=== PATIENT | male | born 1980 | race African-American/Black ===

== ENCOUNTER 2017-05-13 22:15 | Emergency (ER) | payer OTHER ==
[2017-05-13] MEDS ORDERED: KETOROLAC TROMETHAMINE INJ/PF 30 MG/1 ML SDV IV ONE (22:23)
[2017-05-13] MEDS ORDERED: HYDROMORPHONE HCL INJ/PF 2 MG/ML AMPULE IV ONE (22:23)
--- NOTE | 2017-05-13 22:29 | ER Document Report ---
ED Medical Screen (RME) - General Chief Complaint: Shoulder Injury Stated Complaint: SHOULDER INJURY Time Seen by Provider: 05/13/17 22:28 Notes: 37-year-old male, past medical history PTSD, presents with right shoulder injury by EMS after a fall. He has never had a shoulder dislocation in the past. He was given 2 mg IV Dilaudid by EMS prior to arrival. PE: Visible right shoulder deformity. Strong distal pulses. I have greeted and performed a rapid initial assessment of this patient. A comprehensive ED assessment and evaluation of the patient, analysis of test results and completion of the medical decision making process will be conducted by additional ED providers. TRAVEL OUTSIDE OF THE [place] IN LAST 30 DAYS: No - Related Data Allergies/Adverse Reactions: tramadol [Tramadol] Allergy (Verified 03/24/17 05:49) Past Medical History - Past Medical History Cardiac Medical History: Reports: Hx Hypertension Psychiatric Medical History: Reports: Hx Depression - Immunizations Hx Diphtheria, Pertussis, Tetanus Vaccination: Yes
[2017-05-13] MEDS ORDERED: PROPOFOL INJ 200 MG/20 ML VIAL IV ONE (22:32)
[2017-05-13] MEDS ORDERED: FENTANYL CITRATE INJ/PF 100 MCG/2 ML AMPUL IV ONE (22:51)
[2017-05-13] MEDS ORDERED: PROPOFOL 0 ML IV ONE (23:01)
--- NOTE | 2017-05-13 23:06 | RADIOLOGY REPORT (SQ) ---
EXAM DESCRIPTION: SHOULDER RIGHT 2 OR MORE VIEWS COMPLETED DATE/TIME: 05/13/2017 10:51 pm REASON FOR STUDY: right shoulder pain COMPARISON: None. NUMBER OF VIEWS: Two views TECHNIQUE: AP and Y-view images acquired of the right shoulder. LIMITATIONS: None. FINDINGS: MINERALIZATION: Normal. BONES: No acute fracture or dislocation. No worrisome bone lesions. JOINTS: There is an anterior dislocation of the right shoulder. VISUALIZED LUNGS AND RIBS: No pneumothorax. No rib fracture. SOFT TISSUES: No radiopaque foreign body. OTHER: No other significant finding. IMPRESSION: Anterior dislocation without evidence for fracture. TECHNICAL DOCUMENTATION: JOB ID: [id number] [employer]- All Rights Reserved
--- NOTE | 2017-05-13 23:14 | ER Document Report ---
ED General - General Chief Complaint: Shoulder Injury Stated Complaint: SHOULDER INJURY Time Seen by Provider: 05/13/17 22:28 Notes: Patient is a 37-year-old male who presents with severe pain to the right shoulder after apparently falling down several steps. Patient states he tripped and fell landing on his right shoulder. He denies hitting his head or neck. No loss of consciousness. No weakness or numbness. He denies any additional focal injuries but states he does have diffuse body pain. He has no prior history of a shoulder dislocation in the past. He is noting a severe, constant, stabbing pain to the right shoulder. States any attempt at moving the shoulder repositioning worsens the pain. He has received intravenous hydromorphone by EMS and states that this is moderately improved his pain. TRAVEL OUTSIDE OF THE [place] IN LAST 30 DAYS: No - Related Data Allergies/Adverse Reactions: tramadol [Tramadol] Allergy (Verified 03/24/17 05:49) Past Medical History - General Information source: Patient - Social History Smoking Status: Never Smoker Chew tobacco use (# tins/day): No Frequency of alcohol use: Occasional Drug Abuse: None Lives with: Spouse/Significant other Family History: Reviewed & Not Pertinent - Past Medical History Cardiac Medical History: Reports: Hx Hypertension Psychiatric Medical History: Reports: Hx Depression - Immunizations Hx Diphtheria, Pertussis, Tetanus Vaccination: Yes Review of Systems - Review of Systems Notes: Constitutional: Negative for fever. Eyes: Negative for visual changes. ENT: Negative for facial injury Cardiovascular: Negative for chest injury. Respiratory: Negative for shortness of breath. Gastrointestinal: Negative for abdominal injury. Genitourinary: Negative for genital injury Musculoskeletal: Positive for right shoulder pain Skin: Negative for laceration/abrasions. Neurological: Negative for head injury. Physical Exam - Vital signs Vitals: Temp 98.5 F 05/13/17 22:23 Interpretation: Normal Notes: PHYSICAL EXAMINATION: GENERAL: Appears to be in significant pain, diaphoretic HEAD: Atraumatic, normocephalic. EYES: Pupils equal round and reactive to light, extraocular movements intact, sclera anicteric, conjunctiva are normal. ENT: nares patent, no oral pharyngeal trauma. No hemotympanum, no Billingsley's sign , no raccoon eyes. NECK: No midline cervical spine tenderness. Patient able to move their head to 45 bilaterally without any discomfort. LUNGS: Breath sounds clear to auscultation bilaterally and equal. No wheezes rales or rhonchi. HEART: Regular rate and rhythm without murmurs. CHEST WALL: No ecchymosis over the chest wall. ABDOMEN: Soft, nontender, normoactive bowel sounds. No guarding, no rebound. No abdominal bruising EXTREMITIES: Apparent anterior shoulder dislocation on the right. No other similar findings. S. BACK: No midline spinal tenderness, step-offs, or deformities. NEUROLOGICAL: Face symmetric. Tongue protrudes midline. Extraocular motions intact. Pupils are 2 mm and equally reactive. Normal speech, normal gait. 5 out of 5 strength in both the distal and proximal upper and lower extremities bilaterally. Sensation is grossly intact throughout. Finger to nose testing normal. Pronator drift normal. PSYCH: Anxious, somewhat agitated SKIN: Warm, Dry, normal turgor, no rashes or lesions noted. Course - Re-evaluation Re-evalutation: 05/13/17 23:11 Patient presents with an acute right shoulder anterior dislocation after falling down while coming down the steps. He denies any additional injuries. Patient was in exquisite pain of time presentation. X-ray did confirm anterior dislocation. Patient was procedurally sedated with propofol, and reduction was successful. Patient was subsequently placed in a sling. RMU motor and sensory distribution intact pre-and post reduction. Postreduction films obtained and do show appropriate relocation. Patient does have multiple additional areas of contusions over his body but no focal abdominal or chest wall tenderness. He did not his head or neck today. He was able to ambulate around the emergency department after waking up from sedation without any difficulty. At this time will discharge with return precautions and follow-up recommendations. Verbal discharge instructions given a the bedside and opportunity for questions given. Medication warnings reviewed. Patient is in agreement with this plan and has verbalized understanding of return precautions and the need for primary care follow-up in the next 24-72 hours. - Vital Signs Vital signs: Temp Pulse Resp BP Pulse Ox 98.5 F 18 160/104 H 99 05/13/17 22:23 05/14/17 01:01 05/14/17 01:01 05/14/17 01:01 - Diagnostic Test Radiology reviewed: Image reviewed, Reports reviewed Radiology results interpreted by me: 10/23/17 03:52 Initial shoulder x-ray: Anterior right shoulder dislocation Postreduction x-ray: Shoulder relocation is completed Procedures - Conscious Sedation Conscious sedation Time started: 23:00 Time completed: 23:10 Consent obtained: Yes Indication: Procedural sedation for right shoulder relocation Prior complications: Procedural sedation Pt with a mild systemic disease.: P2. - ASA Classification. Airway Evaluation: Large tongue, Obese Mallampati Classification: Class 2 Used during procedure: Suction available, IV access obtained, Pulse ox on pt., awake overnight monitor on pt. Medications administered: Diprivan Reversal agents: None I personally performed/intraservice time: Sedation, Procedure, 30 min or less Complications: No - Joint Reduction/Fracture Care Right Shoulder Time completed: 23:10 Consent obtained: Yes Conscious sedation: Yes Pre-procedure NV exam: Yes Fracture: Other Manipulation comment: Humeral head pressure, inferior traction and external rotation Post-procedure NV exam: Yes Post-reduction x-ray: Joint reduced Reduction attempts: 1 Complications: No Discharge - Discharge Clinical Impression: Anterior dislocation of right shoulder Qualifiers: Encounter type: initial encounter Qualified Code(s): S43.014A - Anterior dislocation of right humerus, initial encounter Fall Qualifiers: Encounter type: initial encounter Qualified Code(s): W19.XXXA - Unspecified fall, initial encounter Condition: Good Disposition: HOME, SELF-CARE Additional Instructions: Your shoulder was dislocated today. This was reduced. Please wear the sling as needed for comfort. Follow-up with orthopedic surgery if you have recurrent shoulder dislocations. You should continue to take anti-inflammatories such as ibuprofen 600 mg every 6 hours for pain. Continue to apply ice to the area is much your able. Please return immediately if you develop weakness, numbness , spreading redness from the area, or any other symptoms that are concerning to you. Forms: Return to Work Referrals: KEVIN GOMEZ MD [Primary Care Provider] - Follow up as needed
--- NOTE | 2017-05-13 23:37 | RADIOLOGY REPORT (SQ) ---
EXAM DESCRIPTION: SHOULDER RIGHT 1 VIEW COMPLETED DATE/TIME: 05/13/2017 11:21 pm REASON FOR STUDY: post-reduction COMPARISON: 05/13/2017 TECHNIQUE: AP view of the right shoulder LIMITATIONS: None. FINDINGS: There has been interval reduction of the previously described anterior dislocation IMPRESSION: Interval reduction as noted above. TECHNICAL DOCUMENTATION: JOB ID: [id number] [employer]- All Rights Reserved
[2017-05-14 01:15] VITALS: BP 160/104
== END 2017-05-14 01:36 | disposition home or self-care (01) ==
LOC: ER 22:15
PROC: 0RSJXZZ Reposition Right Shoulder Joint, External Approach (ICD-10-PCS; principal; 2017-05-13)
DX: S43.014A Anterior dislocation of right humerus, initial encounter (principal); W19.XXXA Unspecified fall, initial encounter
CPT/HCPCS: 99284; 99152; 96374; 73020; 73030; 23650; L3650; J1885; J2704

== ENCOUNTER → 2017-05-24 | Day surgery (SDC) | payer OTHER ==
--- NOTE | 2017-05-24 14:01 | RADIOLOGY REPORT (SQ) ---
EXAM DESCRIPTION: ARTHRO SHOULDER INJECTION; FLUORO/NEEDLE PLACEMENT COMPLETED DATE/TIME: 05/24/2017 1:26 pm REASON FOR STUDY: ANTERIOR DISLOCATION OF RIGHT HUMERUS (S43.014A) S43.014A ANTERIOR DISLOCATION OF RIGHT HUMERUS, INITIAL ENCO COMPARISON: None. FLUOROSCOPY TIME: 18 seconds. 2 images saved to PACS. LIMITATIONS: None. PROCEDURE: Procedure, risks, benefits and alternatives explained to patient who then gave written c onsent. The right shoulder was marked and a time-out was called for correct marking verification. An terior entry site marked using fluoroscopic guidance. Shoulder prepped and draped using equine pharmacology technician nique. Local anesthesia achieved using 1% lidocaine injection. Hypodermic needle introduced into the joint space under direct fluoroscopic visualization. Approximately 10 mL of old blood was remove d. Non-ionic contrast instilled to confirm intra-articular position. Dilute gadolinium solution the n injected. Needle removed and entry site covered with sterile bandage. No immediate complications noted. TECHNIQUE: Digital images acquired during fluoroscopy and stored on PACS. Patient immediately taken to the MR suite for additional imaging. INJECTION LOCATION: Anterior right shoulder. CONTRAST TYPE AND AMOUNT:2 mL Isovue-300 and 10 mL ProHance saline mixture. IMPRESSION: SUCCESSFUL NEEDLE PLACEMENT AND INJECTION FOR RIGHT SHOULDER MR ARTHROGRAM USING ANTERIO R APPROACH. COMMENT: Approximately 10 mm of old blood was aspirated from the shoulder joint prior to contrast in jection. Quality ID [id number]: Final reports for procedures using fluoroscopy that document radiation exposure amalia jem, or exposure time and number of fluorographic images (if radiation exposure indices are not avail able) TECHNICAL DOCUMENTATION: JOB ID: [id number] [employer]- All Rights Reserved
--- NOTE | 2017-05-24 14:01 | RADIOLOGY REPORT (SQ) ---
EXAM DESCRIPTION: ARTHRO SHOULDER INJECTION; FLUORO/NEEDLE PLACEMENT COMPLETED DATE/TIME: 05/24/2017 1:26 pm REASON FOR STUDY: ANTERIOR DISLOCATION OF RIGHT HUMERUS (S43.014A) S43.014A ANTERIOR DISLOCATION OF RIGHT HUMERUS, INITIAL ENCO COMPARISON: None. FLUOROSCOPY TIME: 18 seconds. 2 images saved to PACS. LIMITATIONS: None. PROCEDURE: Procedure, risks, benefits and alternatives explained to patient who then gave written c onsent. The right shoulder was marked and a time-out was called for correct marking verification. An terior entry site marked using fluoroscopic guidance. Shoulder prepped and draped using brewing technician nique. Local anesthesia achieved using 1% lidocaine injection. Hypodermic needle introduced into the joint space under direct fluoroscopic visualization. Approximately 10 mL of old blood was remove d. Non-ionic contrast instilled to confirm intra-articular position. Dilute gadolinium solution the n injected. Needle removed and entry site covered with sterile bandage. No immediate complications noted. TECHNIQUE: Digital images acquired during fluoroscopy and stored on PACS. Patient immediately taken to the MR suite for additional imaging. INJECTION LOCATION: Anterior right shoulder. CONTRAST TYPE AND AMOUNT:2 mL Isovue-300 and 10 mL ProHance saline mixture. IMPRESSION: SUCCESSFUL NEEDLE PLACEMENT AND INJECTION FOR RIGHT SHOULDER MR ARTHROGRAM USING ANTERIO R APPROACH. COMMENT: Approximately 10 mm of old blood was aspirated from the shoulder joint prior to contrast in jection. Quality ID 145: Final reports for procedures using fluoroscopy that document radiation exposure amalia jem, or exposure time and number of fluorographic images (if radiation exposure indices are not avail able) TECHNICAL DOCUMENTATION: JOB ID: [id number] [employer]- All Rights Reserved
--- NOTE | 2017-05-25 09:39 | RADIOLOGY REPORT (SQ) ---
EXAM DESCRIPTION: MRI RT UPPER JOINT WITH COMPLETED DATE/TIME: 05/24/2017 2:05 pm REASON FOR STUDY: ANTERIOR DISLOCATION OF RIGHT HUMERUS (S43.014A) S43.014A ANTERIOR DISLOCATION OF RIGHT HUMERUS, INITIAL ENCO COMPARISON: Right shoulder films 05/13/2017 TECHNIQUE: Right shoulder post arthrogram images acquired and stored on PACS. Oblique coronal, obliq ue sagittal, and axial imaging to include fat sensitive sequences as T1, water sensitive sequences as FST2/STIR, and contrast sensitive sequences as FST1. LIMITATIONS: None. FINDINGS: JOINT DISTENTION: Adequate distention for interpretation. No leakage of contrast from the joint space into the subacromial/subdeltoid bursa. BONE MARROW AND CORTEX: There is marrow edema in the posterior right humeral head along the greater t uberosity from a Hill-Sachs deformity. There is also edema in the inferior bony glenoid from contusi on AC JOINT: Type II acromion. Moderate acromioclavicular joint bony spurring is present best shown on s agittal image 11 and coronal image 12. There is mild narrowing of the subacromial recess. GLENOHUMERAL JOINT: Currently, there is normal glenohumeral alignment. ROTATOR CUFF: High signal along the undersurface of the distal infraspinatus tendon from tendinopathy . Mild high signal along the superior margin of the subscapularis tendon from tendinopathy. Suprasp inatus intact. LABRUM AND BICEPS LABRAL COMPLEX: Long head intra-articular biceps tendon and superior labrum are nor mal. There is a out some lesion along the inferior aspect of the glenoid anteriorly, best shown on a xial images 10-14. There is also an osteochondral fracture of the posterior inferior bony labrum, wi th disruption of the inferior posterior labrum on axial image 11. ADJACENT SOFT TISSUES: No masses or nodes. OTHER: No other significant finding. IMPRESSION: Hill-Sachs deformity right humeral head with mild cortical depression and subcortical ed marisela Soft tissue and bony injury along the anterior inferior and posterior inferior glenoid labrum Tendinopathy along the posterior aspect of the infraspinatus tendon, and superior margin of the subsc apularis tendon TECHNICAL DOCUMENTATION: JOB ID: [id number] [employer]- All Rights Reserved
== END ==
LOC: RAD 12:44
PROVIDERS: ATTEND Family Medicine
PROC: BP09ZZZ Plain Radiography of Left Shoulder (ICD-10-PCS; principal; 2017-05-24)
DX: S43.014A Anterior dislocation of right humerus, initial encounter (principal); X58.XXXA Exposure to other specified factors, initial encounter
CPT/HCPCS: 73222; 77002; 23350; A9576

== ENCOUNTER 2018-03-03 22:33 | Inpatient (IN) | payer OTHER ==
--- NOTE | 2018-03-03 23:07 | EKG REPORT ---
SEVERITY:- BORDERLINE ECG - SINUS RHYTHM BORDERLINE T WAVE ABNORMALITIES : Confirmed by: Marlyn Emmanuel MD 03-Mar-2018 23:06:47
[2018-03-03] MEDS ORDERED: LISINOPRIL 10 MG TABLET PO ONE (23:29)
[2018-03-03] MEDS ORDERED: MORPHINE SULFATE 10 MG/ML INJ IV ONE (23:30)
[2018-03-03] MEDS ORDERED: HYDROCHLOROTHIAZIDE 25 MG TABLET PO ONE (23:30)
--- NOTE | 2018-03-03 23:40 | ER Document Report ---
ED General - General Chief Complaint: Chest Pain Stated Complaint: HIGH BLOOD PRESSURE/CHEST PAIN Time Seen by Provider: 03/03/18 23:21 Notes: Patient is a very pleasant 38-year-old male who presents with complaint of high blood pressure, headache, and mild chest tightness. Patient said he has had a headache and chest pain before with high blood pressure. He has had very similar episodes to this in the past. He says his concern is that this is the highest his blood pressures ever been. Symptoms started this morning. Says headache is global and radiates from front to the back of his head. No nausea vomiting. No fevers. No focal weakness or numbness into his extremities. Chest tightness is mild with no associated shortness of breath. No history of coronary disease. He does have a long history of hypertension. He says he has had difficulty with his insurance company and regarding to getting his medications. He says up until today he was out of his amlodipine and he found some at home and was able to take a dose today. He does have his metoprolol. He says he is out of his lisinopril and hydrochlorothiazide. No recent fevers or infections. No abdominal pain. No other complaints at this time. TRAVEL OUTSIDE OF THE [place] IN LAST 30 DAYS: No - Related Data Allergies/Adverse Reactions: tramadol [Tramadol] Allergy (Verified 03/24/17 05:49) Past Medical History - Social History Smoking Status: Never Smoker Frequency of alcohol use: Rare Drug Abuse: None Family History: Reviewed & Not Pertinent - Past Medical History Cardiac Medical History: Reports: Hx Hypertension Psychiatric Medical History: Reports: Hx Depression - Immunizations Hx Diphtheria, Pertussis, Tetanus Vaccination: Yes Review of Systems - Review of Systems Notes: My Normal Review Basic REVIEW OF SYSTEMS: CONSTITUTIONAL : Denies fever, chills, or sweats. Denies recent illness. EENT: Denies eye, ear, throat, or mouth pain or symptoms. Denies nasal or sinus congestion. CARDIOVASCULAR: Mild chest tightness RESPIRATORY: Denies cough, cold, or chest congestion. Denies shortness of breath, difficulty breathing, or wheezing. GASTROINTESTINAL: Denies abdominal pain. Denies nausea, vomiting, or diarrhea. Denies constipation. Last BM: GENITOURINARY: Denies difficulty urinating, painful urination, burning, frequency, or blood in urine. MUSCULOSKELETAL: Denies neck or back pain or joint pain or swelling. SKIN: Denies rash or skin lesions. NEUROLOGICAL: Denies altered mental status or loss of consciousness. Has a headache. Denies weakness or paralysis or loss of use of either side. Denies problems with gait or speech. Denies sensory or motor loss. ALL OTHER SYSTEMS REVIEWED AND NEGATIVE. Physical Exam - Vital signs Vitals: Temp Pulse BP Pulse Ox 98.4 F 56 L 186/116 H 97 03/03/18 22:50 03/03/18 22:50 03/03/18 22:50 03/03/18 22:50 - Notes Notes: General Appearance: Well nourished, alert, cooperative, no acute distress, no obvious discomfort. Vitals: reviewed, See vital signs table. Head: no swelling or tenderness to the head Eyes: PERRL, EOMI, Conjuctiva clear Mouth: No decreasd moisture Throat: No tonsillar inflammation, No airway obstruction, No lymphadenopathy Neck: Supple, no neck tenderness, no meningismus. Lungs: No wheezing, No rales, No rhonci, No accessory muscle use, good air exchange bilaterally. Heart: Normal rate, Regular rythm, No murmur, no rub Abdomen: Normal BS, soft, No rigidity, No abdominal tenderness, No guarding, no rebound, no abdominal masses, no organomegaly Extremities: strength 5/5 in all extremities, good pulses in all extremities, no swelling or tenderness in the extremities, no edema. Skin: warm, dry, appropriate color, no rash Neuro: speech clear, oriented x 3, normal affect, responds appropriately to questions. Cranial nerves II through XII are intact. Distal sensation intact. Patient moves all extremities without difficulty. Good strength with plantar dorsiflexion against resistance. Good strength in upper extremities. No focal neurologic deficits on exam. Good coordination of movement. Course - Re-evaluation Re-evalutation: 03/04/18 01:50 His headache is improved with the morphine however he still somewhat uncomfortable. CT scan of his head is negative. I suspect symptoms are related to his hypertension that is poorly controlled due to some noncompliance with medication. Patient's pressure is unfortunately not improving with the medications given to him and therefore we will start him on a nicardipine drip. 03/04/18 02:20 Started on a Cardene drip. We will titrate his blood pressure did not drop below 150 as I do not want to dropping too fast. Patient's headache is improved with the morphine. His chest pain is gone at this time however I think a lot of it is related to the morphine and I am concerned that his blood pressure is not at all control with his oral medications therefore I think is appropriate for admission for hypertensive urgency. I did speak with the hospitalist, Dr. Ruiz, who agrees to accept the patient for admission. Dictation of this chart was performed using voice recognition software; therefore, there may be some unintended grammatical errors. 03/04/18 02:21 - Vital Signs Vital signs: Temp Pulse Resp BP Pulse Ox 98.4 F 54 L 20 195/128 H 93 03/03/18 22:50 03/03/18 23:20 03/04/18 01:16 03/04/18 01:16 03/04/18 01:16 - Laboratory Result Diagrams: 03/03/18 23:43 03/04/18 00:55 Laboratory results interpreted by me: 03/03/18 03/04/18 23:43 00:55 Seg Neutrophils % 41.4 L Lymphocytes % 46.4 H Glucose 112 H Discharge - Discharge Clinical Impression: Hypertensive urgency Condition: Stable Disposition: ADMITTED INPATIENT Admitting Provider: Hospitalist Unit Admitted: ICU
--- NOTE | 2018-03-04 00:09 | RADIOLOGY REPORT (SQ) ---
EXAM DESCRIPTION: CT HEAD WITHOUT IV CONTRAST COMPLETED DATE/TME: 03/03/2018 23:30 CLINICAL HISTORY: headache COMPARISON: None available TECHNIQUE: Axial CT of the head obtained from the skull apex to the skull base without contrast. FINDINGS: No acute intracranial hemorrhage identified. No mass, mass effect, shift of the midline, abnormal extra-axial fluid collection or CT evidence of acute ischemic change identified. The ventricular system is unremarkable. No acute abnormalities of the supratentorial white matter, basal ganglia, cerebellum, or brainstem. The visualized paranasal sinuses and the mastoids are clear. No skull fracture identified. Visualized orbits and globes are unremarkable. DLP:1070.17 mGy-cm IMPRESSION: 1. No acute intracranial abnormality identified. This exam was performed according to our departmental dose-optimization program, which includes automated exposure control, adjustment of the mA and/or kV according to patient size and/or use of iterative reconstruction technique.
--- NOTE | 2018-03-04 00:10 | RADIOLOGY REPORT (SQ) ---
EXAM DESCRIPTION: XR CHEST 1 VIEW COMPLETED DATE/TME: 03/03/2018 23:30 CLINICAL HISTORY: headache COMPARISON: 03/24/2017 FINDINGS: Single frontal view of the chest. The cardiomediastinal silhouette has normal size and contour. No consolidation, pneumothorax, or pleural effusion. No displaced rib fractures identified. Leads overlie the chest. Upper abdominal soft tissues are unremarkable. IMPRESSION: 1. No acute pulmonary process identified.
[2018-03-04 00:15] LABS: ABSOLUTE EOSINOPHILS # (AUTO) 0.3 10^3/uL (0.0-0.6); ABSOLUTE LYMPHOCYTES (AUTO) 3.1 10^3/uL (0.5-4.7); ABSOLUTE MONOCYTES (AUTO) 0.5 10^3/uL (0.1-1.4); ABSOLUTE NEUT (AUTO) 2.8 10^3/uL (1.7-8.2); BASOPHILS % (AUTO) 0.6 % (0-2); EOSINOPHILS % (AUTO) 4.3 % (0-6); HEMATOCRIT 45.5 % (37.9-51.0); HEMOGLOBIN 14.9 g/dL (13.5-17.0); LYMPHOCYTES % (AUTO) 46.4 % (13-45); MEAN CORPUSCULAR HEMOGLOBIN 27.3 pg (27.0-33.4); MEAN CORPUSCULAR HGB CONC 32.8 g/dL (32.0-36.0); MEAN CORPUSCULAR VOLUME 83 fl (80-97); MONOCYTES % (AUTO) 7.3 % (3-13); PLATELET COUNT 247 10^3/uL (150-450); RED BLOOD COUNT 5.45 10^6/uL (4.35-5.55); SEGMENTED NEUTROPHILS % (AUTO) 41.4 % (42-78); TOTAL CELLS COUNTED % (AUTO) 100 %; WHITE BLOOD COUNT 6.8 10^3/uL (4.0-10.5)
[2018-03-04] MEDS: NICARDIPINE HCL RTU, ISO-OS 20 MG/200 ML RTUINJ IV PRN ×6 (02:01→21:02)
[2018-03-04 02:04] LABS: ALANINE AMINOTRANSFERASE 41 U/L (21-72); ALBUMIN 4.1 g/dL (3.5-5.0); ALKALINE PHOSPHATASE 103 U/L (38-126); ANION GAP 15 (5-19); ASPARTATE AMINO TRANSFERASE 32 U/L (17-59); BILIRUBIN,DIRECT 0.3 mg/dL (0.0-0.4); BILIRUBIN,TOTAL 0.4 mg/dL (0.2-1.3); BLOOD UREA NITROGEN 17 mg/dL (7-20); CALCIUM 9.3 mg/dL (8.4-10.2); CARBON DIOXIDE 26 mmol/L (22-30); CHLORIDE 104 mmol/L (98-107); GLUCOSE 112 mg/dL (75-110); POTASSIUM 3.7 mmol/L (3.6-5.0); SODIUM 144.5 mmol/L (137-145); TOTAL PROTEIN 7.4 g/dL (6.3-8.2)
[2018-03-04] MEDS ORDERED: ONDANSETRON HCL INJ/PF 4 MG/2 ML SDV IV PRN (02:19)
[2018-03-04] MEDS ORDERED: MORPHINE SULFATE 10 MG/ML INJ IV ONE (02:46)
--- NOTE | 2018-03-04 04:15 | PDOC H&P ---
History of Present Illness Admission Date/PCP: 03/04/18 02:35 Patient complains of: Hypertension, chest tightness History of Present Illness: ZACHARY GRACE is a 38 year old male presenting to the emergency department secondary to elevated blood pressure and chest tightness. Patient has a long- standing past medical history of hypertension for which she is on multiple medications for which she states he has been compliant minus his amlodipine which has been difficult to be covered by insurance. States he woke up today with a dull headache, and when he checked his blood pressure it was noted to be 208/123. He took his home medications, with no improvement and onset of chest tightness patient decided presents to the ER for further workup and evaluation. States chest tightness was located in his left chest wall described as a dull pressure-like tightness that increased in intensity as the day went on. Past Medical History Cardiac Medical History: Reports: Hypertension Psychiatric Medical History: Reports: Depression, Post Traumatic Stress Disorder Past Surgical History Past Surgical History: Reports: Orthopedic Surgery Social History Information Source: Patient Smoking Status: Never Smoker Frequency of Alcohol Use: None Drugs: None Family History Family History: Reviewed & Not Pertinent, Hypertension Parental Family History Reviewed: Yes Children Family History Reviewed: Yes Sibling(s) Family History Reviewed.: Yes Medication/Allergy Home Medications: Hydrochlorothiazide 25 mg PO DAILY 01/26/14 Lisinopril [Prinivil 10 mg Tablet] 20 mg PO BID 01/26/14 Nitroglycerin [Nitrostat] 0.3 mg SL ASDIR #0 tab.subl 01/26/14 Amlodipine Besylate/Benazepril [Amlodipine-Benazepril 10-20 mg] 1 cap PO DAILY 10/31/14 Cholecalciferol (Vitamin D3) [Vitamin D3] 50,000 unit PO ASDIR PRN 10/31/14 Escitalopram Oxalate [Lexapro] 20 mg PO DAILY 10/31/14 Metformin HCl [Glucophage] 500 mg PO DAILY 10/31/14 Metoprolol Succinate 25 mg PO BID 10/31/14 Testosterone Cypionate [Depo-Testosterone] 200 mg IM ASDIR PRN 10/31/14 Allergies/Adverse Reactions: tramadol [Tramadol] Allergy (Verified 03/24/17 05:49) Review of Systems Constitutional: PRESENT: fatigue, headache(s). ABSENT: chills, fever(s), night sweats Cardiovascular: PRESENT: chest pain. ABSENT: dyspnea on exertion, palpitations Respiratory: ABSENT: cough Gastrointestinal: ABSENT: abdominal pain Physical Exam Vital Signs: Temp Pulse Resp BP Pulse Ox 98.4 F 54 L 27 H 175/105 H 96 03/03/18 22:50 03/03/18 23:20 03/04/18 03:46 03/04/18 03:46 03/04/18 03:46 Intake & Output 03/02/18 03/03/18 03/04/18 06:59 06:59 06:59 Intake Total 47 Balance 47 General appearance: PRESENT: no acute distress, morbidly obese, well-developed, well-nourished Head exam: PRESENT: atraumatic, normocephalic Eye exam: PRESENT: conjunctival injection, EOMI, PERRLA. ABSENT: scleral icterus Ear exam: PRESENT: normal external ear exam Mouth exam: PRESENT: moist, tongue midline Neck exam: ABSENT: carotid bruit, JVD, lymphadenopathy, thyromegaly Respiratory exam: PRESENT: clear to auscultation rafy. ABSENT: rales, rhonchi, wheezes Cardiovascular exam: PRESENT: RRR. ABSENT: diastolic murmur, rubs, systolic murmur Pulses: PRESENT: normal dorsalis pedis pul Vascular exam: PRESENT: normal capillary refill GI/Abdominal exam: PRESENT: normal bowel sounds, soft. ABSENT: distended, guarding, mass, organolmegaly, rebound, tenderness Rectal exam: PRESENT: deferred Extremities exam: PRESENT: full ROM. ABSENT: calf tenderness, clubbing, pedal edema Neurological exam: PRESENT: alert, awake, oriented to person, oriented to place , oriented to time, oriented to situation, CN II-XII grossly intact. ABSENT: motor sensory deficit Psychiatric exam: PRESENT: appropriate affect, normal mood. ABSENT: homicidal ideation, suicidal ideation Skin exam: PRESENT: dry, intact, warm. ABSENT: cyanosis, rash Results Laboratory Results: 03/03/18 03/04/18 03/04/18 23:43 00:55 00:55 WBC 6.8 Hgb 14.9 Potassium 3.7 Creatinine 0.95 Troponin I < 0.012 Impressions: Chest X-Ray 03/03/18 23:30 IMPRESSION: 1. No acute pulmonary process identified. Head CT 03/03/18 23:30 IMPRESSION: 1. No acute intracranial abnormality identified. This exam was performed according to our departmental dose-optimization program, which includes automated exposure control, adjustment of the mA and/or kV according to patient size and/or use of iterative reconstruction technique. Assessment & Plan - Diagnosis (1) Hypertensive urgency Is this a current diagnosis for this admission?: Yes Plan: Patient to be admitted to the intensive care unit at this time given he has been started on a Cardene drip. Titrate as per protocol. Patient blood pressure currently appears to be improved at 164/101. (2) Chest pain, rule out acute myocardial infarction Is this a current diagnosis for this admission?: Yes Plan: Continue to trend patient's troponins every 6 hours 3 oriented within normal limits. No acute ischemia noted on EKG. Nitro, morphine as needed chest pain. Echocardiogram pending for this a.m. we will continue to monitor closely. - Time Critical Time spent with patient: 35 or more minutes Medications reviewed and adjusted accordingly: Yes Anticipated discharge: Home
--- NOTE | 2018-03-04 07:35 | EKG REPORT ---
SEVERITY:- BORDERLINE ECG - SINUS RHYTHM PROBABLE LEFT ATRIAL ABNORMALITY BORDERLINE T WAVE ABNORMALITIES, NO CHANGE : Confirmed by: Seth Mcgill MD 04-Mar-2018 07:34:28
--- NOTE | 2018-03-04 08:47 | RADIOLOGY REPORT (SQ) ---
EXAM DESCRIPTION: U/S RETROPERITON LTD COMPLETED DATE/TIME: 03/04/2018 7:55 am REASON FOR STUDY: hx htn COMPARISON: None. TECHNIQUE: Dynamic and static grayscale images acquired of the kidneys and bladder and recorded on P ACS. Additional selected color Doppler and spectral images recorded. LIMITATIONS: None. FINDINGS: RIGHT KIDNEY: The right kidney measures 10.4 cm in length, normal size. Normal echogenici ty. No solid or suspicious masses. No hydronephrosis. No calcifications. LEFT KIDNEY: The left kidney measures 10.1 cm in length, normal size. Normal echogenicity. No jaiden d or suspicious masses. No hydronephrosis. No calcifications. BLADDER: No masses. No ureteral jets visualized. The urinary bladder is incompletely distended. OTHER FINDINGS: Incidentally, fatty liver. IMPRESSION: 1. NORMAL RENAL ULTRASOUND. TECHNICAL DOCUMENTATION: JOB ID: [id number] [employer]- All Rights Reserved Reading location - IP/workstation name: [email or web address]
[2018-03-04] MEDS ORDERED: METOPROLOL TARTRATE PF/INJ 5 MG/5 ML SDV IV PRN (09:50)
[2018-03-04] MEDS ORDERED: (PENDING PHARMACY ID) (Amlodipine Besylate/Benazepril [Amlodipine-Benazepril 10-40 Mg] 1 C PO SCH (10:00)
[2018-03-04] MEDS ORDERED: TRAMADOL HCL 50 MG TABLET PO PRN (10:59)
[2018-03-04] MEDS: ACETAMINOPHEN 325 MG TABLET PO PRN ×2 (11:09→20:19)
[2018-03-04] MEDS: ENOXAPARIN SODIUM INJ 40 MG/0.4 ML DISP.SYRIN SUBCUT SCH (11:11)
[2018-03-04] MEDS: PANTOPRAZOLE SODIUM 40 MG VIAL IV SCH ×2 (11:13→21:06)
[2018-03-04] MEDS: HYDROCHLOROTHIAZIDE 25 MG TABLET PO SCH (11:38)
[2018-03-04] MEDS: FLUOXETINE HCL 20 MG CAPSULE PO SCH (11:38)
[2018-03-04] MEDS: BENAZEPRIL HCL 20 MG TABLET PO SCH (11:40)
[2018-03-04] MEDS: AMLODIPINE BESYLATE 10 MG TABLET PO SCH (11:40)
[2018-03-04] MEDS ORDERED: METOPROLOL TARTRATE 25 MG TABLET PO SCH (12:00)
--- NOTE | 2018-03-04 17:09 | XCELERA REPORT ---
[address] [address] Transthoracic Echocardiogram Report Name: ZACHARY GRACE Age: 38 yrs Gender: Male : 1980 Patient Status: Inpatient Patient Location: [place] [address]^A Study Date: 03/04/2018 10:04 AM Height: 73 in Weight: 300 lb BSA: 2.6 m2 Procedure: A two-dimensional transthoracic echocardiogram with color flow Doppler was performed. The study was technically difficult with many images being suboptimal in quality. Images were not obtained from all of the standard acoustic windows due to the limited scope of the study. Reason For Study: chest pain History: CHEST PAIN / HYPERTENSIVE URGENCY. Ordering Physician: ISAURA Performed By: Ariane Blackmon Interpretation Summary The left ventricle is normal in size. There is mild concentric left ventricular hypertrophy. No True apical 2 chamber views obtained.Hence cannot comment on the apical anterior , the basal anterior, the basal inferior and apical inferior camacho.The mid anterior , the mid inferior and the rest of the LV camacho contract normally. .Normal LVEF at 65% in the limited views. Doppler measurements suggest impaired left ventricular relaxation, which is associated with grade I/IV or mild diastolic dysfunction There is no thrombus. The left atrial size is normal. There is no evidence of mitral valve prolapse. There is no mitral valve stenosis. There is a trace amount of mitral regurgitation There is no aortic valve stenosis No aortic regurgitation is present. There is no tricuspid stenosis. RSVP is equal to 15 to 20 with RA mean of 5 to 10. There is no pulmonic valvular stenosis. There is no pulmonic valvular regurgitation. There is no pericardial effusion. MMode/2D Measurements & Calculations RVDd: 3.0 cm LVIDd: 5.7 cm FS: 37.3 % Ao root diam: 3.3 cm IVSd: 1.2 cm LVIDs: 3.6 cm EDV(Teich): 159.2 ml Ao root area: 8.8 cm2 LVPWd: 1.2 cm ESV(Teich): 53.1 ml LA dimension: 3.5 cm EF(Teich): 66.6 % Doppler Measurements & Calculations MV E max arlene: MV P1/2t max arlene: Ao V2 max: LV V1 max P.6 cm/sec 96.4 cm/sec 125.7 cm/sec 3.2 mmHg MV A max arlene: MV P1/2t: 59.6 msec Ao max P.3 mmHg LV V1 max: 80.0 cm/sec MVA(P1/2t): 3.7 cm2 89.8 cm/sec MV E/A: 0.86 MV dec slope: 473.4 cm/sec2 MV dec time: 0.24 sec PA V2 max: TR max arlene: MV P1/2t-pr_phl: 120.8 cm/sec 157.5 cm/sec 59.6 msec PA max P.8 mmHgTR max P.9 mmHg Left Ventricle The left ventricle is normal in size. There is mild concentric left ventricular hypertrophy. No True apical 2 chamber views obtained.Hence cannot comment on the apical anterior , the basal anterior, the basal inferior and apical inferior camacho.The mid anterior , the mid inferior and the rest of the LV camacho contract normally. .Normal LVEF at 65% in the limited views. Doppler measurements suggest impaired left ventricular relaxation, which is associated with grade I/IV or mild diastolic dysfunction. There is no thrombus. Right Ventricle The right ventricle is not well visualized secondary to technical limitations. Atria Right atrium not well visualized secondary to technical limitations. The left atrial size is normal. Mitral Valve There is no evidence of mitral valve prolapse. There is no vegetation seen on the mitral valve. There is no mitral valve stenosis. There is a trace amount of mitral regurgitation. Aortic Valve There is no aortic valve stenosis. No aortic regurgitation is present. Tricuspid Valve There is no tricuspid stenosis. RSVP is equal to 15 to 20 with RA mean of 5 to 10. Pulmonic Valve There is no pulmonic valvular stenosis. There is no pulmonic valvular regurgitation. Great Vessels The aortic root is not well visualized. Effusions There is no pericardial effusion. : GWEN^MARTHA > Marlyn Emmanuel
--- NOTE | 2018-03-04 17:30 | Progress Note ---
Provider Note Provider Note: 38 y.o. M who presented to the emergency department with hypertensive urgency. PMH includes hypertension. Patient reports he takes hydrochlorothiazide, amlodipine, benazepril, metoprolol tartrate at home. The patient states he ran out of his hydrochlorothiazide and amlodipine "a while ago." He states he has difficulty obtaining refills through his insurance company, which is why he often runs out of medication. Upon assessment, the patient is resting comfortably in bed. He is endorsing headache, denies chest pain or shortness of breath. S1-S2. Palpable pulses in upper and lower extremities. No evidence of peripheral edema. Carry out plan set forth by catholic priest: 1. HYPERTENSIVE URGENCY: Initial BP 208/123. EKG shows NSR. Started on Cardene gtt in ED, goal SBP 140-160. Restarted home anti-HTN medications, BP was still 160s. Consulted Cardiology and increased metoprolol dose from 25mg to 50mg. 2. HEADACHE: Secondary to HTN. Tramadol and tylenol PRN pain. 3. MEDICATION NON-COMPLIANCE: Patient reports having trouble getting insurance to approve blood pressure medication refills. Requested assistance from discharge planning to further investigate.
[2018-03-04] MEDS: METOPROLOL TARTRATE 25 MG TABLET PO SCH (18:45)
[2018-03-04 20:07] LABS: CREATINE KINASE MB 1.53 ng/mL (<4.55); TROPONIN I 0.034 ng/mL
[2018-03-05 01:57] LABS: CREATINE KINASE MB 1.33 ng/mL (<4.55); TROPONIN I 0.038 ng/mL
[2018-03-05] MEDS: METOPROLOL TARTRATE 25 MG TABLET PO SCH (05:08)
[2018-03-05 09:01] LABS: CREATINE KINASE MB 1.35 ng/mL (<4.55); TROPONIN I 0.013 ng/mL
[2018-03-05] MEDS: FLUOXETINE HCL 20 MG CAPSULE PO SCH (09:33)
[2018-03-05] MEDS: HYDROCHLOROTHIAZIDE 25 MG TABLET PO SCH (09:34)
[2018-03-05] MEDS: ENOXAPARIN SODIUM INJ 40 MG/0.4 ML DISP.SYRIN SUBCUT SCH (09:34)
[2018-03-05] MEDS: PANTOPRAZOLE SODIUM 40 MG VIAL IV SCH ×2 (09:34→21:35)
[2018-03-05] MEDS: BENAZEPRIL HCL 20 MG TABLET PO SCH (09:34)
[2018-03-05] MEDS: AMLODIPINE BESYLATE 10 MG TABLET PO SCH (09:34)
--- NOTE | 2018-03-05 10:41 | CONSULTATION REPORT E ---
Consultation Report NAME: ZACHARY GRACE : 1980 AGE: 38Y DATE: 03/04/2018 611 A TO: TINO LANDON M.D. FROM: MARTHA HIDALGO M.D. Requesting Physician REASON FOR CONSULTATION: Chest pain and hypertensive urgency. HISTORY OF PRESENT ILLNESS: The patient is a 38-year-old male with a longstanding history of hypertension, states that he woke up this morning with headache which was severe. His asked him to take his blood pressure and his blood pressure was 208/123 and hence the patient came to the emergency room. He also developed left chest wall pain which is reproducible by pressing on the chest. There is no clear cut anginal symptoms. Although the patient has headache, there is confusion, slurred speech, or focal weakness. The patient denies any palpitations, syncope, or near syncope. There is no leg edema. There is no shortness of breath, PND, orthopnea. There is no clear cut anginal symptoms. There is chest wall pain which reproducible by pressing on the chest. PAST MEDICAL HISTORY: Positive for history of hypertension. The patient states that it has been difficult to control his blood pressure. He is on multiple medications. He states that he had renal artery Doppler's done which showed no renal artery stenosis. He has history of posttraumatic stress disorder and he also has depression. PAST SURGICAL HISTORY: Positive for vasectomy and orthopedic surgery. ALLERGIES: The patient is allergic to TRAMADOL. FAMILY HISTORY: Positive for hypertension, but negative for coronary artery disease or diabetes mellitus. SOCIAL HISTORY: The patient never smoked. There is no history of EtOH abuse. MEDICATIONS: 1. Tylenol 975 mg p.o. q.6 h p.r.n. 2. Amlodipine 10 mg p.o. daily. 3. Benazepril 40 mg p.o. daily. 4. Lovenox 40 mg subcutaneously daily. 5. Prozac 20 mg p.o. daily. 6. Hydralazine 10 mg IV q.6 hours p.r.n. 7. Hydrochlorothiazide 25 mg p.o. x1 and 25 mg p.o. daily. 8. Cardene drip at 7.5 mg/h. 9. Metoprolol 5 mg IV q.6 hours p.r.n. and metoprolol 50 mg p.o. q.12 hours. 10. Morphine sulfate 3 mg IV x1 and morphine sulfate 2 mg IV x1. 11. Zofran 4 mg IV q.8 hours p.r.n. 12. Pantoprazole 40 mg IV q.12 hours. REVIEW OF SYSTEMS: CONSTITUTIONAL: Denies any fever, chills, or rigors. HEAD: Complains of headache which is secondary to his blood pressure being up. No dizziness. He has no history of focal weaknesses. EYES: No history of amblyopia or diplopia. No history of amaurosis fugax. EARS: No history of hearing loss. No history of tinnitus. No history of recurrent ear infections. NOSE: No history of hay fever. No history of nasal polyps. No history of nosebleeds. No history of nasal polyposis. MOUTH: No history of altered taste sensation. No ulcer in the mouth. No bleeding of the gums. THROAT: No odynophagia or dysphagia. No history of recurrent sore throats. SKIN: No pruritus. No yellowish discoloration of the skin. No history of eczematous or psoriasis. NECK: Denies any neck pain. No history of goiter. No history of swelling in the neck. LUNGS: No history of asthma or COPD. No cough or sputum production. No symptoms of upper or lower respiratory tract infections. No history of hemoptysis. No history of sleep apnea. No history of wheezing, cough, or sputum production. CARDIAC: No history of coronary artery disease. No history of anginal symptoms. No history of congestive heart disease. History of hypertension, difficult to control on multiple medications. No history of arrhythmia. No history of palpitations. No history of PND, orthopnea, leg edema, or syncope. ENDOCRINE: No history of diabetes mellitus. No history of thyroid disease. No history of polyuria. No history of heat or cold intolerance. GI: No history of peptic ulcer disease. No history of GERD. No history of jaundice. No history of ascites. No history of GI bleed. No history of abdominal pain. Appetite is good. RENAL: No history of chronic kidney disease. No history of hematuria, pyuria, or dysuria. CENTRAL NERVOUS SYSTEM: No definite history of migraines, but the patient states when his blood pressure rise, he gets headache. No history of TIA or CVA. No history of seizures. No history of gait imbalance. PSYCHIATRIC: History of depression. Seems to be well-controlled on medication. History of posttraumatic stress disorder. No history of suicidal ideation. No history of homicidal ideation. VASCULAR: No history of calf or buttock claudication. No history of DVT. HEMATOLOGICAL: No history of bleeding diastasis. No history of clotting disorders. PHYSICAL EXAMINATION: GENERAL: The patient is moderately obese, but well-groomed. At present, he is in some distress due to headache. He also has chest wall tenderness that is reproducible by pressing on the left side in front of the chest. VITAL SIGNS: He is afebrile with a temperature of 97.8 degrees Fahrenheit. His pulse is 68 beats per minute. Blood pressure 162/87, respirations are 18 per minute, O2 saturations are 98% on room air. HEAD: Atraumatic, normocephalic. EYES: Pupils are equal, round, and regular. Reactive to light and accommodation. Extraocular movements are normal. There is no conjunctival pallor. There is no scleral icterus. EARS: Tympanic membranes are intact. External auditory canals are clear. NOSE: There is no deviated nasal septum. There is no inflammation of the nasal mucous membrane. MOUTH: Mucous membranes of the mouth are moist. Tongue is moist. There are no ulcers. There is no bleeding from the gums. THROAT: There is no redness of oropharynx. There are no exudates. SKIN: There is no skin rash. There is no petechia or ecchymosis. NECK: Supple. There is no JVD. Carotids are equal. There is no bruit. There is no lymphadenopathy. There is no goiter. Trachea is central. LUNGS: Clear to auscultation and percussion. There is left-sided chest wall tenderness which reproduces the patient's symptoms of chest pain. There is no rhonchi, rales, or wheezing. CARDIAC: S1, S2 is heard. There is an S4 gallop present. There is no S3 or gallop. There is a systolic murmur at the left sternal border of the apex. There is no rub. S1 is of normal intensity. ABDOMEN: Soft, slightly obese, nontender. There is no hepatosplenomegaly. Bowel sounds are evident. There is tenderness or masses. There is no rebound, guarding, or rigidity. EXTREMITIES: Femorals are deep, but without any bruits. Femorals are slightly diminished. Leg pulses are well felt. There is no pedal edema. There is no DVT or cellulitis. There is no calf tenderness. There is no cyanosis or clubbing. CENTRAL NERVOUS SYSTEM: The patient is conscious, awake, alert, oriented x3 with focal deficits. PSYCHIATRIC: The patient's judgment and insight are intact. At present, he does not appear to be agitated or depressed. DIAGNOSTIC STUDIES: The patient's head CT shows no acute intracranial abnormality seen. The patient's EKG done on yesterday shows sinus rhythm, borderline T-wave abnormalities. The patient's EKG done today shows sinus rhythm, probable left atrial abnormality, borderline T-wave abnormalities. No significant changes. The patient's echocardiogram is a suboptimal study with limited views, the mid-inferior, mid-anterior, and the rest of the LV camacho contract normally with mild LVH. LV ejection fraction is 65%. There is mild diastolic dysfunction. There is no evidence of mitral valve prolapse or mitral stenosis. There is trace mitral regurgitation present. There is no aortic stenosis. There is no aortic regurgitation. There is no tricuspid stenosis. Right ventricular systolic pressure is 15-20 mm with *------* of 5-10. There is trace tricuspid regurgitation. There is no pericardial effusion. The patient's white count is 6800, hemoglobin is 14.9, hematocrit 45.5, platelet count is 247,000. The patient's sodium is 144.5, potassium 3.7, chloride 104, CO2 26, BUN 17, creatinine 0.95, GFR greater than 60, glucose 120. Liver function tests are normal. His calcium is 9.3. His cardiac enzymes are negative at 0.012, 0.016, and 0.034. His albumin is 4.1 and his total protein is 7.4. IMPRESSION: 1. Hypertensive urgency. 2. Headaches secondary to uncontrolled hypertension. 3. Noncardiac chest wall pain reproducible by pressing on the chest. 4. Depression. 5. Posttraumatic stress disorder. RECOMMENDATIONS: Continue current medications. Would increase the Cardene drip to 10 mg/h. Echo findings discussed with the patient. Note, the patient was seen at 1:30 p.m. A total of 60 minutes on the patient, more than 50% of the time spent on direct patient care. Discussed with the hospitalist. Discussed with the nurse taking care of the patient. We will follow with you. DISPOSITION: The patient is a FULL CODE: His is the surrogate healthcare decision maker. Medical decision-making is of high complexity. In view of the need for multiple medications and the need for IV Cardene, with still blood pressure not being optimally controlled. If the blood pressure is still not optimally controlled, increase the patient's lisinopril to 40 mg p.o. q.12 hours. Continue the patient's Lopressor. Once the blood pressure is controlled, we will place the patient on aspirin 81 mg p.o. daily. Note, more than 55 minutes of time spent on direct patient care. DICTATING PHYSICIAN: TINO LANDON M.D. [id number] ARMOND#: [id number] ID: [id number] JOB#: [id number] ACCT: [id number] cc:TINO LANDON M.D. >
[2018-03-05] MEDS: HYDRALAZINE HCL INJ/PF 20 MG/1 ML SDV IV PRN ×2 (12:17→18:33)
--- NOTE | 2018-03-05 15:17 | PDOC PROGRESS REPORT ---
Subjective Progress Note for:: 03/05/18 Subjective:: The patient is a 38-year-old male with past medical history of hypertension, PTSD, and depression who was admitted on 03/04/18 for hypertensive urgency. The patient is seen on morning rounds. He is found resting in bed comfortably on room air. Initially he is sleeping, but wakes easily when I say his name. Blood pressure is noted to be 150/109. The patient reports that he is feeling well today; he states that his chest pain and headache have resolved. He does admit to anxiety regarding his elevated blood pressures and is concerned that eating today will cause his blood pressure to increase. He states that he attempts to follow a diet at home but has difficulty with this. He also reports that he has difficulty maintaining the multiple medication regiment [facility]. He has no new questions or concerns today and reports that he is hopeful to be discharged soon. No concerns per nursing. Reason For Visit: HTN EMERGENCY Physical Exam Vital Signs: Temp Pulse Resp BP Pulse Ox 98 F 69 27 H 152/97 H 95 03/05/18 12:00 03/05/18 12:00 03/05/18 14:01 03/05/18 14:00 03/05/18 12:00 Intake & Output 03/04/18 03/05/18 03/06/18 06:59 06:59 06:59 Intake Total 184 1421 720 Output Total 1800 575 Balance 184 -379 145 Weight 134.8 kg General appearance: PRESENT: no acute distress, cooperative, obese, well- developed, well-nourished Head exam: PRESENT: atraumatic, normocephalic Eye exam: PRESENT: conjunctiva pink, EOMI, PERRLA. ABSENT: scleral icterus Ear exam: PRESENT: normal external ear exam Mouth exam: PRESENT: moist, tongue midline Neck exam: ABSENT: carotid bruit, JVD, lymphadenopathy, thyromegaly Respiratory exam: PRESENT: clear to auscultation rafy, symmetrical, unlabored. ABSENT: rales, rhonchi, wheezes Cardiovascular exam: PRESENT: RRR, +S1, +S2. ABSENT: diastolic murmur, rubs, systolic murmur Pulses: PRESENT: normal dorsalis pedis pul Vascular exam: PRESENT: normal capillary refill GI/Abdominal exam: PRESENT: normal bowel sounds, soft. ABSENT: distended, guarding, mass, organolmegaly, rebound, tenderness Rectal exam: PRESENT: deferred Extremities exam: PRESENT: full ROM. ABSENT: calf tenderness, clubbing, pedal edema Neurological exam: PRESENT: alert, awake, oriented to person, oriented to place , oriented to time, oriented to situation, CN II-XII grossly intact. ABSENT: motor sensory deficit Psychiatric exam: PRESENT: appropriate affect, normal mood. ABSENT: homicidal ideation, suicidal ideation Skin exam: PRESENT: dry, intact, warm. ABSENT: cyanosis, rash Results Laboratory Results: 03/04/18 03/04/18 03/04/18 07:00 13:24 19:23 Creatine Kinase CK-MB (CK-2) 1.53 Troponin I 0.016 0.034 0.034 03/04/18 03/05/18 03/05/18 19:23 01:24 01:24 Creatine Kinase 267 H 169 CK-MB (CK-2) 1.33 Troponin I 0.038 03/05/18 03/05/18 07:28 07:28 Creatine Kinase 179 H CK-MB (CK-2) 1.35 Troponin I 0.013 Impressions: Chest X-Ray 03/03/18 23:30 IMPRESSION: 1. No acute pulmonary process identified. Head CT 03/03/18 23:30 IMPRESSION: 1. No acute intracranial abnormality identified. This exam was performed according to our departmental dose-optimization program, which includes automated exposure control, adjustment of the mA and/or kV according to patient size and/or use of iterative reconstruction technique. Renal Ultrasound 03/04/18 00:00 IMPRESSION: 1. NORMAL RENAL ULTRASOUND. Assessment & Plan - Diagnosis (1) Hypertensive urgency Is this a current diagnosis for this admission?: Yes Plan: The patient was initially admitted to the ICU on a Cardene drip. This has been weaned the patient's home medications have been resumed. Blood pressures are much improved; 150/109, down from 208/123. Echocardiogram reveals mild LVH, LVEF 65%, mild diastolic dysfunction Renal ultrasound is benign. The patient's home medication regiment of amlodipine 10 mg daily, benazepril 20 mg daily, metoprolol 50 mg twice daily, and hydrochlorothiazide 25 mg daily is resumed. Cardiology has been consulted; appreciate their evaluation recommendations. Nephrology has been consulted; I discussed the patient's case with OSMAN Hennessy today. Mr. Jaquez reports that he and Dr. Bolton would be happy to follow the patient as an outpatient to assist with managing his malignant hypertension ; appreciate his evaluation recommendations today with regard to his persistently elevated blood pressures. Cardiac diet. (2) Chest pain, rule out acute myocardial infarction Is this a current diagnosis for this admission?: Yes Plan: The patient complained of atypical chest pain; reproducible with palpation of the chest. He reports today that his pain has resolved. Due to hypertensive urgency, chest pain rule out was initiated. Chest pain is determined to be noncardiac in nature. EKG demonstrates normal sinus rhythm. Echocardiogram demonstrated LVH, preserved ejection fraction, mild diastolic dysfunction Troponins trended upward to a peak of 0.038, now 0.013. No longer trending Cardiology is consulted; Appreciate their evaluation recommendations. (3) Depression Is this a current diagnosis for this admission?: Yes Plan: The patient's home medication is continued; Prozac. (4) Obesity (BMI 30-39.9) Is this a current diagnosis for this admission?: Yes Plan: Will assess TSH, hemoglobin A1c, and lipid panel with a.m. labs. Dietary discretion is advised. He is placed on a cardiac diet. - Time Time Spent with patient: 15-24 minutes Medications reviewed and adjusted accordingly: Yes Anticipated discharge: Home Within: within 24 hours
[2018-03-05] MEDS ORDERED: LORAZEPAM 0.5 MG TABLET PO PRN (15:22)
[2018-03-05] MEDS ORDERED: FLUOXETINE HCL 20 MG CAPSULE PO SCH (15:23)
--- NOTE | 2018-03-05 15:37 | PDOC CONSULTATION ---
Consultation Consult Date: 03/05/18 Consult reason:: resistant hypertension History of Present Illness Admission Date/PCP: 03/04/18 02:35 History of Present Illness: ZACHARY GRACE is a 38 year old male with history of uncontrolled hypertension. He presented to the emergency department due to high blood pressure in the low 200s systolic. Other complaints were chest pain and a headache. He states that he has been having a hard time getting all of his blood pressure medications since [facility]. He also has trouble getting into his primary care to get his blood pressure medications adjusted. When he was initally in the ER a chest x-ray and CT of the head were done. Both were unremarkable. Labs showed a normal creatinine. He was brought to the ICU and placed on a cardene drip at 10mg/h. On examination the blood pressure was slightly better in the 160s systolic. He denies chest pain, SOB, or headaches. Other than hypertension the patient denies any other past medical history. He does admit to poor diet that is high in sodium. Past Medical History Psychiatric Medical History: Reports: Depression, Post Traumatic Stress Disorder Past Surgical History Past Surgical History: Reports: Orthopedic Surgery Social History Smoking Status: Never Smoker Frequency of Alcohol Use: None Hx Recreational Drug Use: No Drugs: None Hx Prescription Drug Abuse: No - Advance Directive Resuscitation Status: Full Code Family History Parental Family History Reviewed: No Children Family History Reviewed: NA Sibling(s) Family History Reviewed.: NA Medication/Allergy Home Medications: Amlodipine Besylate/Benazepril [Amlodipine-Benazepril 10-40 mg] 1 cap PO DAILY 03/04/18 Fluoxetine HCl [Prozac 20 mg Capsule] 20 mg PO DAILY 03/04/18 Hydrochlorothiazide [Hydrodiuril 25 mg Tablet] 25 mg PO DAILY 03/04/18 Metoprolol Tartrate [Lopressor 25 mg Tablet] 25 mg PO Q12 03/04/18 Allergies/Adverse Reactions: tramadol [Tramadol] Allergy (Verified 03/04/18 12:14) Review of Systems Constitutional: PRESENT: headache(s). ABSENT: chills, fatigue, fever(s), weakness Eyes: ABSENT: visual disturbances Cardiovascular: PRESENT: chest pain. ABSENT: dyspnea on exertion, edema, orthropnea, palpitations Respiratory: ABSENT: cough, dyspnea, sputum Gastrointestinal: PRESENT: abdominal pain. ABSENT: constipation, diarrhea, nausea, vomiting Genitourinary: ABSENT: difficulty urinating, dysuria Neurological: ABSENT: confusion, dizziness, focal weakness, numbness, tingling, weakness Physical Exam Vital Signs: Temp Pulse Resp BP Pulse Ox 98 F 69 27 H 152/97 H 95 03/05/18 12:00 03/05/18 12:00 03/05/18 14:01 03/05/18 14:00 03/05/18 12:00 Intake & Output 03/04/18 03/05/18 03/06/18 06:59 06:59 06:59 Intake Total 184 1421 720 Output Total 1800 575 Balance 184 -379 145 Weight 134.8 kg General appearance: PRESENT: no acute distress, well-developed, well-nourished Mouth exam: PRESENT: moist, neck supple Neck exam: ABSENT: carotid bruit, JVD, tracheal deviation Respiratory exam: PRESENT: clear to auscultation rafy. ABSENT: accessory muscle use, crackles, rales, rhonchi, wheezes Cardiovascular exam: PRESENT: RRR, +S1, +S2 GI/Abdominal exam: ABSENT: ascites, distended, guarding, mass, renal bruit, soft Extremities exam: ABSENT: pedal edema, tenderness, +1 edema, +2 edema Musculoskeletal exam: PRESENT: normal inspection. ABSENT: tenderness Neurological exam: PRESENT: alert, awake, oriented to person, oriented to place , oriented to time, oriented to situation Psychiatric exam: PRESENT: appropriate affect, normal mood Skin exam: PRESENT: dry, intact, warm. ABSENT: cyanosis, erythema Results Laboratory Results: 03/04/18 03/04/18 03/04/18 07:00 13:24 19:23 Creatine Kinase CK-MB (CK-2) 1.53 Troponin I 0.016 0.034 0.034 03/04/18 03/05/18 03/05/18 19:23 01:24 01:24 Creatine Kinase 267 H 169 CK-MB (CK-2) 1.33 Troponin I 0.038 03/05/18 03/05/18 07:28 07:28 Creatine Kinase 179 H CK-MB (CK-2) 1.35 Troponin I 0.013 Impressions: Chest X-Ray 03/03/18 23:30 IMPRESSION: 1. No acute pulmonary process identified. Head CT 03/03/18 23:30 IMPRESSION: 1. No acute intracranial abnormality identified. This exam was performed according to our departmental dose-optimization program, which includes automated exposure control, adjustment of the mA and/or kV according to patient size and/or use of iterative reconstruction technique. Renal Ultrasound 03/04/18 00:00 IMPRESSION: 1. NORMAL RENAL ULTRASOUND. Assessment & Plan - Diagnosis (1) Hypertensive urgency Is this a current diagnosis for this admission?: Yes Plan: will look to switch metoprolol to carvedilol. Will also order a drug screen for possible illegal drugs and will also get a urinalysis to check for proteinuria. (2) Obesity (BMI 30-39.9) Is this a current diagnosis for this admission?: Yes Plan: discussed the need for a proper diet (3) Essential hypertension Plan: discussed the need for a low sodium diet - Notes Notes: case was discussed with Dr. oBlton
[2018-03-05] MEDS: ACETAMINOPHEN 325 MG TABLET PO PRN (19:17)
[2018-03-05] MEDS: CARVEDILOL 12.5 MG TABLET PO SCH (21:35)
[2018-03-06 04:44] LABS: CHOLESTEROL 213.11 mg/dL (0-200); TRIGLYCERIDES 205 mg/dL (<150)
[2018-03-06 04:55] LABS: DIRECT LDL 118 mg/dL (<100)
--- NOTE | 2018-03-06 06:21 | PROGRESS NOTE E ---
Progress Note NAME: ZACHARY GRACE : 1980 AGE: 38Y DATE: 03/05/2018 ROOM: 611 SUBJECTIVE: The patient denies any chest pain or discomfort. There is no PND, orthopnea. He is off the Cardene drip and his blood pressure still is not optimally controlled. His blood pressure is 152/97. He denies any leg edema. There is no arrhythmia seen on the monitor. There is no cough or sputum production. There is no dizziness, syncope, or near syncope. There are no TIA or CVA symptoms. His headache has subsided. OBJECTIVE: GENERAL: The patient is moderately obese, but well groomed, in no acute distress. VITAL SIGNS: He is afebrile with a temperature of 97.8 degrees Fahrenheit, his pulse is 78 beats per minute, blood pressure 152/97, respirations are 22 per minute, O2 saturations are 98% on room air. HEAD: Atraumatic, normocephalic. EYES: Pupils are equal, round, regular, reactive to light and accommodation. Extraocular movements are normal. There is no conjunctival pallor. There is no scleral icterus. ENT: Negative. NECK: Supple. There is no JVD. Carotids are equal. There is no bruit. There is no lymphadenopathy. There is no goiter. Trachea is central. LUNGS: Clear to auscultation and percussion. There is no rhonchi, rales, or wheezing. There is no chest wall tenderness. CARDIOVASCULAR: S1 and S2 are heard. There is an S4 gallop present. There is no S3 gallop. There is a systolic murmur left sternal border of the apex without any significant radiation. There is no rub. ABDOMEN: Soft, nontender. There is no hepatosplenomegaly. Bowel sounds are well heard. There are no tender areas or masses. EXTREMITIES: Femorals are deep. There is no femoral bruit. Femorals are slightly diminished. Leg pulses are well felt. There is no pedal edema. There is no DVT or cellulitis. There is no calf tenderness. CENTRAL NERVOUS SYSTEM: The patient is conscious, awake, alert, oriented x3 with no focal deficit. PSYCHIATRIC: The patient's judgment and insight are intact. His affect is normal. INTAKE/OUTPUT: The patient's 24-hour intake is 1421 mL. Output is 1800 mL. LABORATORY: The patient's CPK is 179, CPK-MB is negative. His troponin I is negative at 0.013. IMPRESSION: 1. HYPERTENSIVE URGENCY. NOTE: Patient's blood pressure is improved, but still not optimally controlled. 2. HEADACHE SECONDARY TO UNCONTROLLED HYPERTENSION, NOW HEADACHES HAVE RESOLVED. 3. NONCARDIAC CHEST WALL PAIN, AT PRESENT NO CHEST WALL PAIN. 4. DEPRESSION. 5. POSTTRAUMATIC STRESS DISORDER. PLAN: Continue current medication. Note that the patient's Cardene drip has been discontinued. Nephrology is on the case. They have switched the patient from Lopressor to Coreg. Will watch and see. Will discuss with them as to addition of clonidine or hydralazine. NOTE: His medications have been reviewed and case discussed with the attending physician on the case and other caregiving providers on the case. NOTE: Forty minutes spent on this patient with more than 50% of the time spent in direct patient care. Medical decision making is still of high complexity. Will follow with you. DICTATING PHYSICIAN: TINO LANDON M.D. [id number] SAMY#: [id number] ID: [id number] JOB#: [id number] ACCT: [id number] cc: >
[2018-03-06] MEDS: BENAZEPRIL HCL 20 MG TABLET PO SCH (09:33)
[2018-03-06] MEDS: HYDROCHLOROTHIAZIDE 25 MG TABLET PO SCH (09:33)
[2018-03-06] MEDS: CARVEDILOL 12.5 MG TABLET PO SCH (09:34)
[2018-03-06] MEDS: AMLODIPINE BESYLATE 10 MG TABLET PO SCH (09:34)
[2018-03-06] MEDS: PANTOPRAZOLE SODIUM 40 MG VIAL IV SCH (09:34)
[2018-03-06] MEDS: ENOXAPARIN SODIUM INJ 40 MG/0.4 ML DISP.SYRIN SUBCUT SCH (09:35)
[2018-03-06 13:56] LABS: APPEARANCE,URINE CLEAR; BILIRUBIN,URINE NEGATIVE (NEGATIVE); COLOR,URINE YELLOW; GLUCOSE, URINE NEGATIVE (NEGATIVE); KETONES,URINE NEGATIVE (NEGATIVE); LEUKOCYTE ESTERASE,URINE NEGATIVE (NEGATIVE); NITRITE,URINE NEGATIVE (NEGATIVE); PROTEIN,URINE 30 mg/dL (NEGATIVE); UROBILINOGEN,URINE NEGATIVE mg/dL (<2.0)
[2018-03-06 14:37] LABS: URINE AMPHETAMINES SCREEN NEGATIVE; URINE BARBITURATES SCREEN NEGATIVE; URINE BENZODIAZEPINES SCREEN NEGATIVE; URINE COCAINE SCREEN NEGATIVE; URINE MARIJUANA (THC) SCREEN NEGATIVE; URINE METHADONE SCREEN NEGATIVE; URINE PHENCYCLIDINE SCREEN NEGATIVE
--- NOTE | 2018-03-06 15:49 | RADIOLOGY REPORT (SQ) ---
EXAM DESCRIPTION: CTA CHEST COMPLETED DATE/TIME: 03/06/2018 2:53 pm REASON FOR STUDY: chest discomfort, tachycardia, tachypnea COMPARISON: None. TECHNIQUE: CT scan of the chest performed using helical scanning technique with dynamic intravenous contrast injection. Images reviewed with lung, soft tissue and bone windows. Reconstructed coronal and sagittal MPR images reviewed. Additional 3 dimensional post-processing performed to develop Maximal Intensity Projection images ([facility] P). All images stored on PACS. All CT scanners at this facility use dose modulation, iterative reconstruction, and/or weight based d osing when appropriate to reduce radiation dose to as low as reasonably achievable (ALARA). [facility]: Dose Right [facility]: CareDose [facility]: Dose Right [facility]: Teradose 4D [facility]: [employer] CONTRAST TYPE AND DOSE: contrast/concentration: Isovue 350.00 mg/ml; Total Contrast Delivered: 79.0 ml; Total Saline Delivered: 110.0 ml Contrast bolus optimized for the pulmonary arteries. Not diagnostic for the aorta. RENAL FUNCTION: None required. The patient is less than 50 years old. RADIATION DOSE: CT Rad equipment meets quality standard of care and radiation dose reduction techniq ues were employed. CTDIvol: 13.2 - 15.4 mGy. DLP: 541 mGy-cm. . LIMITATIONS: None. FINDINGS: LUNGS AND PLEURA: No masses, infiltrates, or pneumothorax. No pleural effusions or pleura l calcifications. AORTA AND GREAT VESSELS: No aneurysm. Contrast bolus not optimized for the aorta. HEART: No pericardial effusion. No significant coronary artery calcifications. PULMONARY ARTERIES: No emboli visualized in the main pulmonary arteries or the segmental branches. HILAR AND MEDIASTINAL STRUCTURES: No identified masses or abnormal nodes. HARDWARE: None in the chest. UPPER ABDOMEN: No significant findings. Limited exam. THYROID AND OTHER SOFT TISSUES: No masses. No adenopathy. BONES: No acute or significant finding. 3D MIPS: Confirm above findings. OTHER: No other significant finding. IMPRESSION: NORMAL CTA OF THE CHEST. NO PULMONARY EMBOLI. COMMENT: Quality ID # [id number]: Final reports with documentation of one or more dose reduction techniques (e.g., Automated exposure control, adjustment of the mA and/or kV according to patient size, use of iterative reconstruction technique) TECHNICAL DOCUMENTATION: JOB ID: [id number] [employer]- All Rights Reserved Reading location - IP/workstation name: [email or web address]
[2018-03-06 16:45] VITALS: BP 157/103
[2018-03-06] MEDS ORDERED: CARVEDILOL 12.5 MG TABLET PO SCH (22:00)
--- NOTE | 2018-03-07 04:51 | PROGRESS NOTE E ---
Progress Note NAME: ZACHARY GRACE : 1980 AGE: 38Y DATE: 03/06/2018 ROOM: 611 SUBJECTIVE: The patient states he has no chest pain or discomfort. There are no headaches today. Yesterday, he said yesterday evening he had some short episode of chest pain which subsided by itself. His blood pressure is slightly better and Nephrology is following the blood pressure and feels that the patient's blood pressure can be managed as an outpatient. He denies any chest pain or shortness of breath. There is no PND, orthopnea, or leg edema. There are no palpitations, syncope, or near syncope. OBJECTIVE: GENERAL: He is moderately obese, in no acute distress. He is well groomed. VITAL SIGNS: The patient is afebrile. His pulse is 81 beats per minute. Blood pressure 157/101. Respirations are 20 per minute. O2 sats are 96% on room air. HEAD: Atraumatic, normocephalic. EYES: Pupils are equal, round, regular, reactive to light and accommodation. Extraocular movements are normal. There is no conjunctival pallor. There is no scleral icterus. ENT: Negative. NECK: Supple. There is no JVD. Carotids are equal. There is no bruit. There is no lymphadenopathy. There is no goiter. Trachea is central. LUNGS: Clear to auscultation and percussion. There is no chest wall tenderness. CARDIOVASCULAR: S1 and S2 are heard. There is an S4 gallop present. There is no S3 gallop. There is a systolic murmur at the left sternal border at the apex without radiation. There is no rub. S1 is of normal intensity. ABDOMEN: Soft, nontender. There is no hepatosplenomegaly. Bowel sounds are well heard. There are no tender areas or masses. EXTREMITIES: Femorals are deep. There is no femoral bruit. Leg pulses are well felt. Femorals are slightly diminished. There is no pedal edema. There is no DVT or cellulitis. There is no calf tenderness. There is no cyanosis or clubbing. CENTRAL NERVOUS SYSTEM: The patient is conscious, awake, alert, oriented x3 with no focal deficit. PSYCHIATRIC: The patient's judgment and insight are intact. His affect is normal. DIAGNOSTIC STUDIES: The patient's chest CTA is a normal CTA of the chest, without pulmonary emboli. LABORATORY DATA: The patient's triglycerides are 205. Cholesterol is 213. His LDL cholesterol is elevated at 118. His HDL cholesterol is borderline at 40. His TSH is 3.90. IMPRESSION: 1. HYPERTENSIVE URGENCY. BLOOD PRESSURE IMPROVED, BUT STILL NOT OPTIMALLY CONTROLLED. Nephrology will manage his blood pressure as an outpatient. The patient being discharged. 2. HEADACHE SECONDARY TO UNCONTROLLED HYPERTENSION. AT PRESENT, TODAY NO HEADACHES. 3. NONCARDIAC CHEST WALL PAIN, RESOLVED. 4. DEPRESSION. 5. POSTTRAUMATIC STRESS DISORDER. 6. HYPERLIPIDEMIA. RECOMMENDATIONS: Medications have been reviewed, and his Coreg has been increased to 25 mg p.o. q. 12 hours. This has been discussed with Nephrology. Note: Further workup can be done as an outpatient. In view of the patient's risk factors for CAD, he can have an EKG treadmill stress test as an outpatient. TIME SPENT: Forty minutes spent on the patient, with more than 50% of the time spent on direct patient care. Medical decision making is of moderate complexity. I will follow the patient as an outpatient. Thanking you. DICTATING PHYSICIAN: TINO LANDON M.D. [id number] ARMOND#: [id number] ID: [id number] JOB#: [id number] ACCT: [id number] cc: >
--- NOTE | 2018-03-07 21:06 | PDOC DISCHARGE SUMMARY ---
General - Admit/Disc Date/PCP Admission Date/Primary Care Provider: 03/04/18 02:35 Discharge Date: 03/06/18 - Discharge Diagnosis (1) Hypertensive urgency Is this a current diagnosis for this admission?: Yes Summary: The patient was initially admitted to the ICU on a Cardene drip. This was been weaned the patient's home medications were resumed with some improvement in BP; 150/109, down from 208/123. Echocardiogram reveals mild LVH, LVEF 65%, mild diastolic dysfunction Renal ultrasound is benign. Urine protein (+) and UDS (-) Both Cardiology and Nephrology services were consulted. Both services approved discharge to home with elevated pressure of 150s/100 with follow up. The patient was strongly advised on lifestyle modifications: cardiac diet, weight loss, caffeine and tobacco avoidance. He was provided prescriptions for Amlodipine/benazepril, HCTZ, and metoprolol. The patient was instructed to follow up with his primary care provider within 1 week, with Nephrology within 10-14 days, and with Cardiology in 4-6 weeks. (2) Chest pain, rule out acute myocardial infarction Is this a current diagnosis for this admission?: Yes Summary: The patient complained of atypical chest pain; reproducible with palpation of the chest. Due to hypertensive urgency, chest pain rule out was initiated. Chest pain is determined to be noncardiac in nature. EKG demonstrates normal sinus rhythm. Echocardiogram demonstrated LVH, preserved ejection fraction, mild diastolic dysfunction Troponins trended upward to a peak of 0.038, now 0.013. No longer trending CTA of the chest is normal. (3) Depression Is this a current diagnosis for this admission?: Yes Summary: The patient's home medications are continued. Of note, the patient is currently taking Prozac 60 mg daily which does have HTN as a side effect. Encouraged the patient to discuss dose reduction and switch to an alternate medication with his PCP. (4) Obesity (BMI 30-39.9) Is this a current diagnosis for this admission?: Yes Summary: A1C 6.2% TSH normal. Lipid panel sub-optimal but does not indicate need for medication. Lifestyle modifications were strongly encouraged. - Additional Information Resuscitation Status: Full Code Discharge Diet: Cardiac Discharge Activity: Activity As Tolerated Prescriptions: Amlodipine Besylate/Benazepril [Amlodipine-Benazepril 10-40 mg] 1 cap PO DAILY # 30 capsule Hydrochlorothiazide [Hydrodiuril 25 mg Tablet] 25 mg PO DAILY #30 tablet Metoprolol Tartrate [Lopressor 25 mg Tablet] 25 mg PO Q12 #60 tablet Home Medications: Fluoxetine HCl [Prozac 20 mg Capsule] 20 mg PO DAILY 03/04/18 Acetaminophen [Tylenol 325 mg Tablet] 975 mg PO Q6HP PRN tablet 03/06/18 Amlodipine Besylate/Benazepril [Amlodipine-Benazepril 10-40 mg] 1 cap PO DAILY # 30 capsule 03/06/18 Hydrochlorothiazide [Hydrodiuril 25 mg Tablet] 25 mg PO DAILY #30 tablet Metoprolol Tartrate [Lopressor 25 mg Tablet] 25 mg PO Q12 #60 tablet 03/06/18 History of Present Illness History of Present Illness: Per H&P by Dr. Gomez: ZACHARY GRACE is a 38 year old male presenting to the emergency department secondary to elevated blood pressure and chest tightness. Patient has a long-standing past medical history of hypertension for which she is on multiple medications for which she states he has been compliant minus his amlodipine which has been difficult to be covered by insurance. States he woke up today with a dull headache, and when he checked his blood pressure it was noted to be 208/123. He took his home medications, with no improvement and onset of chest tightness patient decided presents to the ER for further workup and evaluation. States chest tightness was located in his left chest wall described as a dull pressure-like tightness that increased in intensity as the day went on. Physical Exam Vital Signs: Temp Pulse Resp BP Pulse Ox 98.3 F 69 21 H 157/103 H 98 03/06/18 16:43 03/06/18 16:43 03/06/18 16:43 03/06/18 16:43 03/06/18 16:43 Intake & Output 03/06/18 03/07/18 03/08/18 06:59 06:59 06:59 Intake Total 1200 840 Output Total 3100 700 Balance -1900 140 Weight 133.1 kg General appearance: PRESENT: no acute distress, cooperative, obese, well- developed, well-nourished Head exam: PRESENT: atraumatic, normocephalic Eye exam: PRESENT: conjunctiva pink, EOMI, PERRLA. ABSENT: scleral icterus Ear exam: PRESENT: normal external ear exam Mouth exam: PRESENT: moist, tongue midline Neck exam: ABSENT: carotid bruit, JVD, lymphadenopathy, thyromegaly Respiratory exam: PRESENT: clear to auscultation rafy. ABSENT: rales, rhonchi, wheezes Cardiovascular exam: PRESENT: RRR, +S1, +S2. ABSENT: diastolic murmur, rubs, systolic murmur Pulses: PRESENT: normal dorsalis pedis pul Vascular exam: PRESENT: normal capillary refill GI/Abdominal exam: PRESENT: normal bowel sounds, soft. ABSENT: distended, guarding, mass, organolmegaly, rebound, tenderness Rectal exam: PRESENT: deferred Extremities exam: PRESENT: full ROM. ABSENT: calf tenderness, clubbing, pedal edema Neurological exam: PRESENT: alert, awake, oriented to person, oriented to place , oriented to time, oriented to situation, CN II-XII grossly intact. ABSENT: motor sensory deficit Psychiatric exam: PRESENT: appropriate affect, normal mood. ABSENT: homicidal ideation, suicidal ideation Skin exam: PRESENT: dry, intact, warm. ABSENT: cyanosis, rash Results Laboratory Results: 03/04/18 03/04/18 03/04/18 07:00 13:24 19:23 Creatine Kinase CK-MB (CK-2) 1.53 Troponin I 0.016 0.034 0.034 03/04/18 03/05/18 03/05/18 19:23 01:24 01:24 Creatine Kinase 267 H 169 CK-MB (CK-2) 1.33 Troponin I 0.038 03/05/18 03/05/18 07:28 07:28 Creatine Kinase 179 H CK-MB (CK-2) 1.35 Troponin I 0.013 Impressions: Chest X-Ray 03/03/18 23:30 IMPRESSION: 1. No acute pulmonary process identified. Head CT 03/03/18 23:30 IMPRESSION: 1. No acute intracranial abnormality identified. This exam was performed according to our departmental dose-optimization program, which includes automated exposure control, adjustment of the mA and/or kV according to patient size and/or use of iterative reconstruction technique. Renal Ultrasound 03/04/18 00:00 IMPRESSION: 1. NORMAL RENAL ULTRASOUND. Chest/Abdomen CTA 03/06/18 00:00 IMPRESSION: NORMAL CTA OF THE CHEST. NO PULMONARY EMBOLI. Qualifiers - * PATIENT BEING DISCHARGED WITH ANY OF THE FOLLOWING DIAGNOSIS: No Plan Discharge Plan: The patient is discharged to home. To follow up with primary care provider within 1 week. Follow up with Nephrology within 10-14 days. Follow up with Cardiology in 4-6 weeks. Time Spent: Less than 30 Minutes
== END 2018-03-06 17:15 | disposition home or self-care (01) | DRG 305 ==
LOC: ER 22:33 → EH 03-04 02:35 → ICU 03-04 15:22
PROVIDERS: ADMIT Family Medicine; ATTEND Family Medicine
DX: I16.0 Hypertensive urgency (principal); F43.10 Post-traumatic stress disorder, unspecified; E66.9 Obesity, unspecified; R07.89 Other chest pain; T50.2X6A Underdosing of carbonic-anhydrase inhibitors, benzothiadiazides and other diuretics, initial encounter; T46.1X6A Underdosing of calcium-channel blockers, initial encounter; Z91.138 Patient's unintentional underdosing of medication regimen for other reason; Z59.8 Other problems related to housing and economic circumstances; Z79.899 Other long term (current) drug therapy; Z68.38 Body mass index [BMI] 38.0-38.9, adult; Z82.49 Family history of ischemic heart disease and other diseases of the circulatory system; Z88.8 Allergy status to other drugs, medicaments and biological substances
CPT/HCPCS: 36415; 70450; 71045; 71275; 76775; 80053; 80061; 80307; 81001; 82550; 82553; 83036; 84443; 84484; 85025; 93005; 93010; 93306; 96374; 99285; J0360; J1650; J2270; J3490; S0164

== ENCOUNTER 2019-05-06 04:00 | Emergency (ER) | payer OTHER ==
--- NOTE | 2019-05-06 04:07 | ER Document Report ---
ED General - General Chief Complaint: Epigastric Pain Stated Complaint: RIGHT UPPER QUADRANT PAIN Time Seen by Provider: 05/06/19 04:07 TRAVEL OUTSIDE OF THE [place] IN LAST 30 DAYS: No - HPI Patient complains to provider of: abd pain Notes: 39 y/o presenting to ED for evaluation of abdominal pain he tells me he has had 4-5 days of RUQ abdominal pain that has been more or less constant and worsening no nausea/vomiting/diarrhea/urinary pain/hematuria no abd distention no back pain no chest pain no shortness of breath no h/o abdominal surgeries pain is a cramping kind of pain that can vary from mild to severe - Related Data Allergies/Adverse Reactions: tramadol [Tramadol] Allergy (Verified 03/04/18 12:14) Past Medical History - Social History Smoking Status: Unknown if Ever Smoked Family History: Reviewed & Not Pertinent, Hypertension - Past Medical History Cardiac Medical History: Reports: Hx Hypertension Renal/ Medical History: Denies: Hx Peritoneal Dialysis Psychiatric Medical History: Reports: Hx Depression, Hx Post Traumatic Stress Disorder Past Surgical History: Reports: Hx Orthopedic Surgery - Immunizations Hx Diphtheria, Pertussis, Tetanus Vaccination: Yes Review of Systems - Review of Systems Constitutional: No symptoms reported EENT: No symptoms reported Cardiovascular: No symptoms reported Respiratory: No symptoms reported Gastrointestinal: Abdominal pain Genitourinary: No symptoms reported Male Genitourinary: No symptoms reported Musculoskeletal: No symptoms reported Skin: No symptoms reported Hematologic/Lymphatic: No symptoms reported Neurological/Psychological: No symptoms reported Physical Exam - Vital signs Vitals: Temp Pulse Resp BP Pulse Ox 98.2 F 70 22 H 193/110 H 98 05/06/19 04:07 05/06/19 04:07 05/06/19 04:07 05/06/19 04:07 05/06/19 04:07 Interpretation: Normal - General General appearance: Appears well, Alert - HEENT Head: Normocephalic, Atraumatic Eyes: Normal Pupils: PERRL - Respiratory Respiratory status: No respiratory distress Chest status: Nontender Breath sounds: Normal Chest palpation: Normal - Cardiovascular Rhythm: Regular Heart sounds: Normal auscultation Murmur: No - Abdominal Inspection: Normal Distension: No distension Bowel sounds: Normal Tenderness: Tender - RUQ. No: McBurney's point, Eastman's sign, Guarding, Rebound Organomegaly: No organomegaly - Back Back: Normal, Nontender - Extremities General upper extremity: Normal inspection, Nontender, Normal color, Normal ROM, Normal temperature General lower extremity: Normal inspection, Nontender, Normal color, Normal ROM, Normal temperature, Normal weight bearing. No: Adela's sign - Neurological Neuro grossly intact: Yes Cognition: Normal Orientation: AAOx4 [place] Coma Scale Eye Opening: Spontaneous [place] Coma Scale Verbal: Oriented [place] Coma Scale Motor: Obeys Commands [place] Coma Scale Total: 15 Speech: Normal Motor strength normal: LUE, RUE, LLE, RLE Sensory: Normal - Psychological Associated symptoms: Normal affect, Normal mood - Skin Skin Temperature: Warm Skin Moisture: Dry Skin Color: Normal Course - Re-evaluation Re-evalutation: 05/06/19 04:18 abd pain -> reproducible on exam CT to evaluate for pathology 05/06/19 06:06 pain has improved IV hydralazine for elevated BP given ongoing critically elevated values 05/06/19 06:29 CT negative patient pain improved BP improved from initial readings home BP meds given prior to discharge dc w/ carafate and zantac and pcp follow up return precautions given at time of dc - Vital Signs Vital signs: Temp Pulse Resp BP Pulse Ox 98.2 F 70 18 191/107 H 98 05/06/19 04:07 05/06/19 04:07 05/06/19 06:23 05/06/19 06:23 05/06/19 06:23 - Laboratory Result Diagrams: 05/06/19 04:31 05/06/19 04:31 Laboratory results interpreted by me: 05/06/19 05/06/19 04:31 05:49 Sodium 136.3 L Glucose 140 H Urine Protein 30 H - Diagnostic Test Radiology reviewed: Image reviewed, Reports reviewed Discharge - Discharge Clinical Impression: Acute abdominal pain, Elevated blood pressure reading Condition: Stable Disposition: HOME, SELF-CARE Instructions: Abdominal Pain ([facility]), Antispasmodics ([facility]) Additional Instructions: take medicine as directed return to the ED with worsening follow up with primary doctor take your blood pressure medicine as directed Prescriptions: Dicyclomine HCl [Bentyl 10 mg Capsule] 1 cap PO TID #30 cap Sucralfate [Carafate 1 gm Tablet] 1 gm PO ACHS #30 tablet Ranitidine HCl [Zantac] 150 mg PO BID #14 tablet Forms: Elevated Blood Pressure, Return to Work Referrals: DYLAN SMALL MD [ACTIVE STAFF] - Follow up as needed
[2019-05-06] MEDS ORDERED: LIDOCAINE 2% VISCOUS SOLN 20 ML UDCUP PO ONE (04:13)
[2019-05-06] MEDS ORDERED: METOCLOPRAMIDE HCL ORAL SOLN 10 MG/10 ML UDCUP PO ONE (04:13)
[2019-05-06] MEDS ORDERED: MAG HYDROX/AL HYDROX/SIMETH SUSP 30 ML UDCUP PO ONE (04:13)
[2019-05-06] MEDS ORDERED: NORMAL SALINE 1000 ML 1,000 ML IV ONE (04:13)
[2019-05-06] MEDS ORDERED: FAMOTIDINE INJ/PF 20 MG/2 ML SDV IV ONE (04:13)
[2019-05-06] MEDS ORDERED: KETOROLAC TROMETHAMINE INJ/PF 30 MG/1 ML SDV IV ONE (04:16)
[2019-05-06] MEDS ORDERED: MORPHINE SULFATE 10 MG/ML INJ IV ONE (04:52)
[2019-05-06] MEDS ORDERED: HYDRALAZINE HCL INJ/PF 20 MG/1 ML SDV IV ONE (04:52)
[2019-05-06 04:55] LABS: ABSOLUTE BASOPHILS # (AUTO) 0.1 10^3/uL (0.0-0.2); ABSOLUTE EOSINOPHILS # (AUTO) 0.3 10^3/uL (0.0-0.6); ABSOLUTE LYMPHOCYTES (AUTO) 2.7 10^3/uL (0.5-4.7); ABSOLUTE MONOCYTES (AUTO) 0.7 10^3/uL (0.1-1.4); ABSOLUTE NEUT (AUTO) 4.1 10^3/uL (1.7-8.2); BASOPHILS % (AUTO) 1.1 % (0-2); EOSINOPHILS % (AUTO) 3.3 % (0-6); HEMATOCRIT 42.8 % (37.9-51.0); HEMOGLOBIN 14.4 g/dL (13.5-17.0); LYMPHOCYTES % (AUTO) 34.4 % (13-45); MEAN CORPUSCULAR HEMOGLOBIN 27.8 pg (27.0-33.4); MEAN CORPUSCULAR HGB CONC 33.6 g/dL (32.0-36.0); MEAN CORPUSCULAR VOLUME 83 fl (80-97); MONOCYTES % (AUTO) 8.8 % (3-13); PLATELET COUNT 319 10^3/uL (150-450); RED BLOOD COUNT 5.17 10^6/uL (4.35-5.55); RED CELL DISTRIBUTION WIDTH 13.5 % (11.5-14.0); SEGMENTED NEUTROPHILS % (AUTO) 52.4 % (42-78); TOTAL CELLS COUNTED % (AUTO) 100 %; WHITE BLOOD COUNT 7.8 10^3/uL (4.0-10.5)
[2019-05-06 05:12] LABS: ALKALINE PHOSPHATASE 90 U/L (38-126); ANION GAP 6 (5-19); ASPARTATE AMINO TRANSFERASE 33 U/L (17-59); BILIRUBIN,DIRECT 0.1 mg/dL (0.0-0.4); BILIRUBIN,TOTAL 0.4 mg/dL (0.2-1.3); BLOOD UREA NITROGEN 15 mg/dL (7-20); CALCIUM 9.2 mg/dL (8.4-10.2); CARBON DIOXIDE 29 mmol/L (22-30); CHLORIDE 101 mmol/L (98-107); GLUCOSE 140 mg/dL (75-110); POTASSIUM 3.9 mmol/L (3.6-5.0); TOTAL PROTEIN 7.2 g/dL (6.3-8.2)
[2019-05-06 06:05] LABS: APPEARANCE,URINE CLEAR; BILIRUBIN,URINE NEGATIVE (NEGATIVE); COLOR,URINE STRAW; GLUCOSE, URINE NEGATIVE (NEGATIVE); KETONES,URINE NEGATIVE (NEGATIVE); PROTEIN,URINE 30 mg/dL (NEGATIVE); UROBILINOGEN,URINE NEGATIVE mg/dL (<2.0)
--- NOTE | 2019-05-06 06:21 | RADIOLOGY REPORT (SQ) ---
CT abdomen and pelvis with contrast on 05/06/2019 at 5:37 AM CLINICAL INDICATION: Generalized abdominal pain TECHNIQUE: Multiple axial images are obtained throughout the abdomen and pelvis following the administration of IV contrast, 98 mL of Omnipaque 350 contrast was administered intravenously without complication. This exam was performed according to our departmental dose-optimization program, which includes automated exposure control, adjustment of the mA and/or kV according to patient size and/or use of iterative reconstruction technique. Total DLP is 2708.7 mGy*cm. COMPARISON: None FINDINGS: Abdomen: There is minimal bibasilar atelectasis and/or scarring. There is fatty infiltration of the liver. The solid abdominal organs are otherwise unremarkable. There is no abdominal adenopathy. There is no free fluid or free air within the abdomen. The abdominal portion of the GI tract is unremarkable. Pelvis: There is no free fluid in the pelvis. There is a small right inguinal hernia containing only fat. There is no pelvic adenopathy. Pelvic portion of the GI tract including the appendix is unremarkable. Degenerative changes are noted in the spine. IMPRESSION: No acute abnormality.
[2019-05-06] MEDS ORDERED: AMLODIPINE BESYLATE 10 MG TABLET PO ONE (06:28)
[2019-05-06] MEDS ORDERED: BENAZEPRIL HCL 20 MG TABLET PO ONE (06:28)
[2019-05-06] MEDS ORDERED: HYDROCHLOROTHIAZIDE 25 MG TABLET PO ONE (06:28)
[2019-05-06] MEDS ORDERED: BENAZEPRIL HCL 20 MG TABLET ONE (06:43)
[2019-05-06 06:52] VITALS: BP 184/102
== END 2019-05-06 06:52 | disposition home or self-care (01) ==
LOC: ER 04:00
DX: R10.13 Epigastric pain (principal); R10.11 Right upper quadrant pain; I10 Essential (primary) hypertension
CPT/HCPCS: 36415; 83690; 85025; 80053; 81001; 84484; 83605; 74177; J0360; J3490; J1885; J2270; J7030; S0028; 96361; 96374; 96375; 99284

== ENCOUNTER 2019-06-10 07:28 | Emergency (ER) | payer OTHER ==
--- NOTE | 2019-06-10 07:54 | EKG REPORT ---
SEVERITY:- ABNORMAL ECG - SINUS RHYTHM PROBABLE LEFT ATRIAL ABNORMALITY NONSPECIFIC LATERAL ST-T CHANGES : Confirmed by: Seth Mcgill MD 10-Jun-2019 07:54:04
--- NOTE | 2019-06-10 08:27 | RADIOLOGY REPORT (SQ) ---
EXAM DESCRIPTION: CHEST 2 VIEWS COMPLETED DATE/TIME: 06/10/2019 8:13 am REASON FOR STUDY: Cough COMPARISON: 06/23/2015 EXAM PARAMETERS: NUMBER OF VIEWS: two views TECHNIQUE: Digital Frontal and Lateral radiographic views of the chest acquired. RADIATION DOSE: NA LIMITATIONS: none FINDINGS: LUNGS AND PLEURA: No focal consolidation, pleural effusion or pneumothorax. MEDIASTINUM AND HILAR STRUCTURES: No masses or contour abnormalities. HEART AND VASCULAR STRUCTURES: Heart normal size. No evidence for failure. BONES: No acute findings. HARDWARE: None in the chest. OTHER: No other significant finding. IMPRESSION: No focal consolidation or other evidence of acute cardiopulmonary process. TECHNICAL DOCUMENTATION: JOB ID: [id number] [employer]- All Rights Reserved Reading location - IP/workstation name: [email or web address]
--- NOTE | 2019-06-10 08:43 | ER Document Report ---
ED General - General Information source: Patient TRAVEL OUTSIDE OF THE [place] IN LAST 30 DAYS: No - HPI Onset: Yesterday Onset/Duration: denies: Sudden, Gradual, Constant, Intermittent, Persistent, Waxing and waning, Better, Worse, Gone Quality of pain: Achy. denies: No pain, Burning, Cramping, Dull, Fullness, Pressure, Sharp, Stabbing, Throbbing, Other Severity: Mild Pain Level: 1 Associated symptoms: Chest pain, Productive cough. denies: None, Allergy/hay fever, Body/muscle aches, Chills, Nonproductive cough, Diarrhea, Drooling, Earache, Fever, Headache, Hoarseness, Hurts to breath, Leg swelling, Nausea, Vomiting, Rhinnorhea, Sinus pain/drainage, Shortness of breath, Slow to respond, Sore throat, Sweating, Weakness, Other Exacerbated by: Coughing, Deep breathing Relieved by: denies: Denies, Supine, Sitting, Standing, Remaining still, Antacids, Food, Other - General Chief Complaint: Chest Pain Stated Complaint: COUGH [facility] Provider: [facility] [[facility]] - Follow up as needed - Related Data Allergies/Adverse Reactions: tramadol [Tramadol] Allergy (Verified 06/10/19 07:52) Past Medical History - Social History Smoking Status: Never Smoker Chew tobacco use (# tins/day): No Frequency of alcohol use: None Drug Abuse: Marijuana Family History: Reviewed & Not Pertinent, Hypertension Patient has suicidal ideation: Yes Patient has homicidal ideation: Yes - Past Medical History Cardiac Medical History: Reports: Hx Hypertension Endocrine Medical History: Reports: Hx Diabetes Mellitus Type 2 Renal/ Medical History: Denies: Hx Peritoneal Dialysis Psychiatric Medical History: Reports: Hx Depression, Hx Post Traumatic Stress Disorder Past Surgical History: Reports: Hx Orthopedic Surgery - Immunizations Hx Diphtheria, Pertussis, Tetanus Vaccination: Yes Review of Systems - Review of Systems Constitutional: Chills, Fever. denies: No symptoms reported, See HPI, Diaphoresis, Malaise, Weakness, Other, Weight gain, Weight loss, Recent illness EENT: denies: No symptoms reported, See HPI, Eye pain, Eye discharge, Blurred vi karo, Tearing, Double vision, Ear pain, Ear discharge, Nose pain, Nose congestion, Nose discharge, Sinus pressure, Sinus discharge, Throat pain, Difficulty swallowing, Throat swelling, Mouth pain, Mouth swelling, Dental problem, Vertigo, Other Cardiovascular: Chest pain. denies: No symptoms reported, See HPI, Palpitations, Heart racing, Orthopnea, Dyspnea, Syncope, Dizziness, Lightheaded, Edema, Other, Paroxysmal Nocturnal Dysp Respiratory: Cough, Sputum. denies: No symptoms reported, See HPI, Hurts to breathe, Hemoptysis, Short of breath, Stridor, Wheezing, Other Gastrointestinal: denies: No symptoms reported, See HPI, Abdomen distended, Abdominal pain, Diarrhea, Nausea, Vomiting, Constipation, Blood streaked bowels, Poor appetite, Poor fluid intake, Blood in vomit, Black stools, Rectal bleeding, Last bowel movement, Fecal incontinence, Other Genitourinary: denies: No symptoms reported, See HPI, Burning, Dysuria, Discharge, Frequency, Flank pain, Hematuria, Incontinence, Pain, Urgency, Retention, Other Musculoskeletal: denies: No symptoms reported, See HPI, Back pain, Gout, Joint pain, Joint swelling, Muscle pain, Muscle stiffness, Neck pain, Deformity, Leg swelling, Ankle swelling, Other Skin: denies: No symptoms reported, See HPI, Change in color, Change in hair/nails, Dryness, Lesions, Lumps, Rash, Other Hematologic/Lymphatic: denies: No symptoms reported, See HPI, Anemia, Blood clots, Easy bleeding, Easy bruising, Enlarged lymph nodes, Swollen glands, Other Neurological/Psychological: denies: No symptoms reported, See HPI, Confusion, Dementia, Depression, Hallucinations, Anxiety, Homicidal ideation, Sensory change, Weakness, Gait changes, Loss of power, Paralysis, Seizure, Lost consciousness, Headaches, Speech impairment, Numbness, Suicidal ideation, Tingling, Tremor, Other -: Yes All other systems reviewed and negative Physical Exam - Vital signs Vitals: Temp Pulse Resp BP Pulse Ox 98.8 F 87 18 203/118 H 97 06/10/19 07:49 06/10/19 07:49 06/10/19 07:49 06/10/19 07:49 06/10/19 07:49 Notes: PHYSICAL EXAMINATION: GENERAL: Well-appearing, well-nourished and in no acute distress. HEAD: Atraumatic, normocephalic. EYES: Pupils equal round and reactive to light, extraocular movements intact, sclera anicteric, conjunctiva are normal. ENT: nares patent, oropharynx clear without exudates. Moist mucous membranes. NECK: Normal range of motion, supple without lymphadenopathy LUNGS: Breath sounds clear to auscultation bilaterally and equal. No wheezes rales or rhonchi. Pain to palpation of the chest on the right side. HEART: Regular rate and rhythm without murmurs ABDOMEN: Soft, nontender, normoactive bowel sounds. No guarding, no rebound. No masses appreciated. EXTREMITIES: Normal range of motion, no pitting or edema. No cyanosis. NEUROLOGICAL: No focal neurological deficits. Moves all extremities spontaneously and on command. PSYCH: Normal mood, normal affect. SKIN: Warm, Dry, normal turgor, no rashes or lesions noted. (DALJIT ARDON) Course - Diagnostic Test Radiology reviewed: Pending, Image reviewed - EKG Interpretation by Ca EKG shows normal: Sinus rhythm Rate: Normal Rhythm: NSR When compared to previous EKG there are: Previous EKG unavailable - Vital Signs Vital signs: Temp Pulse Resp BP Pulse Ox 98.8 F 87 18 203/118 H 97 06/10/19 07:49 06/10/19 07:49 06/10/19 07:49 06/10/19 07:49 06/10/19 07:49 - Transfer of Care Notes: 06/10/19 09:57 Note: Apparently according to the patient's who arrived later informed the nurse that patient last night having suicidal thoughts. He currently denies those however he will undergo a psychiatric consult to determine whether he will need inpatient hospitalization. 06/10/19 12:42 Psych has seen patient and he requests voluntary admission for depression. He is not actively suicidal/homocidal nor has hallucenations. (DALJIT ARDON) Discharge - Discharge Clinical Impression: PTSD (post-traumatic stress disorder), Bronchitis Condition: Stable Disposition: HOME, SELF-CARE Instructions: Chest Wall Pain ([facility]) Additional Instructions: You have been evaluated by both medical and behavioral health teams and have bee n deemed appropriate for discharge. You have elected to voluntarily seek treatment at [facility]. You are encouraged to follow through with this plan. Please reach out to the Department of 's Affairs upon discharge for further mental health treatment. Post-Traumatic Stress Disorder You seem to have post-traumatic stress disorder (PTSD). PTSD can cause chronic anxiety, sleeping problems, social withdrawal, and drug abuse. It can occur following a traumatic personal experience such as an accident, rape, assault, or of a loved one, or after experiencing a war or natural disas ter. Symptoms may be delayed for days or even years. Emotional numbing, the inability to express grief, is usually the earliest sign. There may be apathy or agitation, aggression, and inability to perform ordinary tasks. Often there are frightening nightmares and sudden, intruding memories of the trauma. Panic attacks and feelings of guilt are common. Alcohol and drug use make post-traumatic stress symptoms worse. Medication may be temporarily necessary to combat anxiety, panic attacks, and depression. Medicine should not be considered a "cure." You must deal with the trauma and prepare to go on. Group therapy is often helpful. This helps you "talk through" the problem with others who share your symptoms. We can provide you with an appropriate referral. DEPRESSION: Your evaluation reveals that you have mental depression. While symptoms may be vague, they often include disturbance of sleep, fatigue, loss of appetite, and general loss of interest in life. While depression may be a side effect of drugs, or a reaction to a major change in your life, many cases have no known cause. If depression is acute, and related to a major loss in your life, you can expect it to clear completely with time. If you have been depressed a long time, are prone to repeated bouts of depression or low mood, or have been thinking of suicide, get help. Depression can be treated with anti-depressant medication and counselling. Long-term depression will often take a few weeks to clear, even with appropriate medication. Follow-up care is important. SUICIDAL IDEATION: Suicidal ideation is a common medical term for thoughts about suicide, which may be as detailed as a formulated plan, without the suicidal act itself. Although most people who undergo suicidal ideation do not commit suicide, some go on to make suicide attempts. The range of suicidal ideation varies greatly from fleeting to detailed planning, role playing, and unsuccessful attempts. While thoughts about suicide are common, most people do not carry out serious actions to commit suicide. Based upon your evaluation and discussion with you, we do not believe you are currently at risk to act upon your thoughts of suicide. You have agreed to return to the Emergency Department, at any time, if you feel inclined to act upon your suicidal thoughts. FOLLOW-UP CARE: If you have been referred to a physician for follow-up care, call the physicians office for an appointment as you were instructed or within the next two days. If you experience worsening or a significant change in your symptoms, notify the physician immediately or return to the Emergency Department at any time for re-evaluation. Prescriptions: Benzonatate [Tessalon Perle 100 mg Capsule] 100 mg PO Q8HP PRN #40 cap PRN Reason: Albuterol Sulfate [Proair HFA Inhalation Aerosol 8.5 gm MDI] 2 puff IH Q4H PRN #1 mdi PRN Reason: Referrals: [facility] [Primary Care Provider] - Follow up as needed
[2019-06-10 09:18] LABS: A TYPE INFLUENZA AG NEGATIVE (NEGATIVE); B INFLUENZA AG NEGATIVE (NEGATIVE)
[2019-06-10] MEDS ORDERED: HYDROCODONE BIT/HOMATROPINE SYRUP 5 ML UDCUP PO PRN (11:57)
--- NOTE | 2019-06-10 12:17 | PSYCHOLOGICAL NOTE ---
Psych Note - Psych Note Date seen by psych provider: 06/10/19 Time seen by psych provider: 11:30 Psych Note: Reason for consult: Anxiety Patient is a 39 year old male who presents to ED via EMS. Patient initially presented to ED for chest pains and anxiety. Patient stated he was not well and experiencing pain all over my body. 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 Patient recalled a prior suicidal ideation in which he had planned to shoot himself with his firearm. Patient described concerns with obtaining mental health services as an male. Patient expressed his experiences with discrimination and racism. Patient denies wanting to , however the weight of his emotional pain is inhibiting his ability to function. Patient described a strong support system. Patient expressed concerns about how others, especially his employer, will look at me after seeking inpatient treatment. Patient described an issue with his employer that causes his concer ns. Rogerian techniques were used to provide patient with genuineness, unconditional positive regard, and empathy. Patient was receptive to clinicians attempts to relate and normalize patients distress. Discussed the connection between the mind and body. Discussed being strong for so long and the need for self-care to recharge. Patient is alert and oriented to person, place, time and circumstance. Mood is dysthymic with congruent affect. Patient was tearful at appropriate times as he recalled past events. Patient denies current suicidal and homicidal ideation. Patient denies auditory and visual hallucinations. Delusions are absent and behavior is congruent with an intact reality based presentation (i.e. organized and linear thought processes). There is no observed behavior that suggests patient is responding to internal stimuli. Eye contact is good. Conversational speech is within normal rate, tone, and prosody. Intellectual ability appears to be within average range. Attention and concentration are good. Insight, judgment, and impulse control are good. DSM Diagnosis: Per report, PTSD Per report, Anxiety Medication recommendations per [facility] contracted psychiatrist Dr. Annamarie COLÓN is as follows: NONE Impression/Plan: Patient is cleared from acute psychiatric services. Patient does not meet IVC criteria per [place] GS 122C. Patient is a combat with PTSD. Patient has experienced barriers to receiving mental health services in the past. Patient is at a point in which his untreated mental health concerns (PTSD) is a barrier to his ability to function. Patient has elected to voluntarily receive mental health services at [facility]. Dr. Gates was consulted on the care and management of this patient; attending physician is in agreement with recommendations and disposition.
[2019-06-10] MEDS ORDERED: HYDROCODONE BIT/HOMATROPINE 5-1.5 MG TABLET PO ONE (13:00)
[2019-06-10 13:03] VITALS: BP 149/86
== END 2019-06-10 13:04 | disposition home or self-care (01) ==
LOC: ER 07:28
DX: J40 Bronchitis, not specified as acute or chronic (principal); F43.10 Post-traumatic stress disorder, unspecified; R07.9 Chest pain, unspecified; R05 Cough; R50.9 Fever, unspecified; F12.10 Cannabis abuse, uncomplicated; I10 Essential (primary) hypertension; E11.9 Type 2 diabetes mellitus without complications; Z88.5 Allergy status to narcotic agent
CPT/HCPCS: 71046; 87804; 93005; 93010; 99285

== ENCOUNTER 2019-11-27 03:21 | Emergency (ER) | payer OTHER ==
[2019-11-27] MEDS ORDERED: PREDNISONE 20 MG TABLET PO ONE (03:51)
[2019-11-27] MEDS ORDERED: LIDOCAINE 1% INJ-PF (10 MG/ML) 30 ML SDV NEB ONE (03:51)
--- NOTE | 2019-11-27 03:54 | ER Document Report ---
ED General - General Chief Complaint: Cough Stated Complaint: COUGH Time Seen by Provider: 11/27/19 03:38 Primary Care Provider: GENET DELA CRUZ [Primary Care Provider] - Follow up in 3-5 days Notes: Patient is a 39-year-old male that comes emergency department for chief complaint of a worsening cough. He states he has had sinus congestion and postnasal drip for "a while", he states that he has had an irritated cough but tonight he could not stop coughing and he coughed until he threw up. He denies pain unless he is coughing, he denies fever/chills, shortness of breath, headache, abdominal pain. Past medical history of hypertension, he denies smoking, asthma, COPD, diabetes. He denies any recreational drugs other than marijuana. He denies any obvious sick contacts or recent travel. TRAVEL OUTSIDE OF THE [place] IN LAST 30 DAYS: No - Related Data Allergies/Adverse Reactions: tramadol [Tramadol] Adverse Reaction (Verified 11/27/19 03:48) Nausea Past Medical History - General Information source: Patient - Social History Smoking Status: Never Smoker Frequency of alcohol use: None Drug Abuse: Marijuana Lives with: Family Family History: Reviewed & Not Pertinent, Hypertension Patient has homicidal ideation: No - Past Medical History Cardiac Medical History: Reports: Hx Hypertension Renal/ Medical History: Denies: Hx Peritoneal Dialysis Psychiatric Medical History: Reports: Hx Depression, Hx Post Traumatic Stress Disorder Past Surgical History: Reports: Hx Oral Surgery - wisdom, Hx Orthopedic Surgery - right shoulder - Immunizations Hx Diphtheria, Pertussis, Tetanus Vaccination: Yes Review of Systems - Review of Systems Constitutional: No symptoms reported EENT: See HPI Cardiovascular: No symptoms reported Respiratory: See HPI Gastrointestinal: No symptoms reported Genitourinary: No symptoms reported Male Genitourinary: No symptoms reported Musculoskeletal: No symptoms reported Skin: No symptoms reported Hematologic/Lymphatic: No symptoms reported Neurological/Psychological: No symptoms reported Physical Exam - Vital signs Vitals: Temp Pulse Resp BP Pulse Ox 97.9 F 67 19 184/104 H 98 11/27/19 03:28 11/27/19 03:28 11/27/19 03:28 11/27/19 03:28 11/27/19 03:28 - Notes Notes: GENERAL: Patient is alert and interactive but does have dark circles under his eyes and appears tired. No signs of distress. HEAD: Normocephalic, atraumatic. EYES: Pupils equal, round, and reactive to light. Extraocular movements intact. ENT: Oral mucosa moist, tongue midline. Oropharynx unremarkable other than minimal erythema and postnasal drip. Airway patent. Nares patent but with some congestion and rhinorrhea, sinuses non-tender, ear canals unremarkable, TM's intact. NECK: Full range of motion. Supple. Trachea midline. No lymphadenopathy. LUNGS: Clear to auscultation bilaterally, no wheezes, rales, or rhonchi. No respiratory distress. Non-tender chest wall. Frequent almost persistent coughing. HEART: Regular rate and rhythm. No murmur ABDOMEN: Soft, non-tender. Non-distended. EXTREMITIES: Moves all 4 extremities spontaneously. No edema, normal radial and dorsalis pedis pulses bilaterally. No cyanosis. BACK: no cervical, thoracic, lumbar midline tenderness. No saddle anesthesia, normal distal neurovascular exam. Moves all extremities in full range of motion. NEUROLOGICAL: Alert and oriented x3. Normal speech. Cranial nerves II through XII grossly intact. Strength 5/5 in all extremities. PSYCH: Normal affect, normal mood. SKIN: Warm, dry, normal turgor. No rashes or lesions noted. Course - Re-evaluation Re-evalutation: Patient with a very persistent cough, appears very tired, states he has not been able to sleep because of this. Patient was given lidocaine nebulizer result, after this coughing stopped, patient actually fell asleep. Patient awoke, states he felt much refreshed and improved. Patient has postnasal drip, some sinus congestion, negative chest x-ray, no hypoxia, no wheezing, no other complaints. No fever. I did discuss coronavirus testing but this was declined, patient does not have any reported risk factors. Patient was provided with dexamethasone, albuterol, and medication to take at night so he can sleep for cough with precautions. These were discussed. Discussed follow-up and return precautions. Patient states appreciation and agreement. Patient is hypertensive but he is due for his blood pressure medication at this morning which he will take, he does not have chest pain or headache. - Vital Signs Vital signs: Temp Pulse Resp BP Pulse Ox 98.1 F 80 19 172/116 H 96 11/27/19 05:42 11/27/19 05:42 11/27/19 05:42 11/27/19 05:42 11/27/19 05:42 Discharge - Discharge Clinical Impression: Rhinorrhea, Productive cough, Post-nasal drip Condition: Stable Disposition: HOME, SELF-CARE Additional Instructions: Your chest x-ray is normal. Your evaluation is consistent with probably initially a viral upper respiratory illness, possibly allergic symptoms, and now developing bronchitis. You have been treated initially for this, use albuterol if needed every 4-6 hours, use [id number] antihistamines such as cetirizine daily, you can also use the cough medication with the precautions provided. Follow-up with primary care for additional management. Symptoms shou ld gradually resolve with time. Return if you worsen including spiking fever, difficulty breathing, or any other concerning or worsening symptoms. Prescriptions: Promethazine HCl/Codeine [Prometh-Codein 6.25-10 mg/5 ml] 5 ml PO Q6HP PRN #80 ml PRN Reason: Albuterol Sulfate [Proair HFA Inhalation Aerosol 8.5 gm MDI] 2 puff IH Q4H PRN #1 mdi PRN Reason: Forms: Return to Work [facility] [[facility] - Follow up in 3-5 days
--- NOTE | 2019-11-27 05:04 | RADIOLOGY REPORT (SQ) ---
CHEST 1 VIEW on 11/27/2019 at 4:22 AM CLINICAL INDICATION: Worsening cough COMPARISON: 06/10/2019 FINDINGS: Heart is borderline in size. Hilar and mediastinal contours are within normal limits. The lungs are clear. Pulmonary vascularity is within normal limits. No bony abnormality is noted. IMPRESSION: No acute disease.
[2019-11-27] MEDS ORDERED: DEXAMETHASONE SOD PHOS INJ 10 MG/1 ML VIAL IM ONE (05:25)
[2019-11-27 05:43] VITALS: BP 172/116
== END 2019-11-27 05:56 | disposition home or self-care (01) ==
LOC: ER 03:21
DX: R05 Cough (principal); R09.81 Nasal congestion; R09.82 Postnasal drip; J34.89 Other specified disorders of nose and nasal sinuses; R11.10 Vomiting, unspecified; F12.10 Cannabis abuse, uncomplicated; I10 Essential (primary) hypertension; Z79.899 Other long term (current) drug therapy
CPT/HCPCS: 94640; 99283; 96372; 71045; J3490; J1100

== ENCOUNTER 2020-08-04 08:16 | Emergency (ER) | payer OTHER ==
[2020-08-04] MEDS ORDERED: METOPROLOL TARTRATE PF/INJ 5 MG/5 ML SDV IV ONE ×2 (10:04→12:28)
[2020-08-04] MEDS ORDERED: HYDRALAZINE HCL INJ/PF 20 MG/1 ML SDV IV ONE (10:09)
[2020-08-04 10:18] LABS: HEMATOCRIT 44.3 % (37.9-51.0); HEMOGLOBIN 15.3 g/dL (13.5-17.0); MEAN CORPUSCULAR HEMOGLOBIN 28.1 pg (27.0-33.4); MEAN CORPUSCULAR HGB CONC 34.5 g/dL (32.0-36.0); MEAN CORPUSCULAR VOLUME 82 fl (80-97); PLATELET COUNT 236 10^3/uL (150-450); RED BLOOD COUNT 5.44 10^6/uL (4.35-5.55); RED CELL DISTRIBUTION WIDTH 13.9 % (11.5-14.0); WHITE BLOOD COUNT 7.5 10^3/uL (4.0-10.5)
[2020-08-04] MEDS ORDERED: HYDRALAZINE HCL 25 MG TABLET PO ONE ×2 (10:34→14:09)
--- NOTE | 2020-08-04 11:01 | EKG REPORT ---
SEVERITY:- ABNORMAL ECG - SINUS RHYTHM NONSPECIFIC INTRAVENTRICULAR CONDUCTION DELAY : Confirmed by: Marlyn Emmanuel MD 04-Aug-2020 11:00:13
[2020-08-04 11:13] LABS: ANION GAP 10 (5-19); BLOOD UREA NITROGEN 18 mg/dL (7-20); CALCIUM 9.7 mg/dL (8.4-10.2); CARBON DIOXIDE 29 mmol/L (22-30); CHLORIDE 100 mmol/L (98-107); GLUCOSE 113 mg/dL (75-110); POTASSIUM 3.9 mmol/L (3.6-5.0)
[2020-08-04] MEDS ORDERED: METOPROLOL TARTRATE 50 MG TABLET PO ONE (12:28)
[2020-08-04] MEDS ORDERED: CLONIDINE HCL 0.1 MG TABLET PO ONE (12:29)
[2020-08-04] MEDS ORDERED: FUROSEMIDE INJ/PF 40 MG/4 ML SDV IV ONE (14:09)
[2020-08-04] MEDS ORDERED: ISOSORBIDE MONONITRATE 60 MG TAB.ER.24H PO ONE (14:09)
--- NOTE | 2020-08-04 14:24 | ER Document Report ---
ED General - General Mode of Arrival: Ambulatory Information source: Patient TRAVEL OUTSIDE OF THE [place] IN LAST 30 DAYS: No <IVETH MOROCHO - Last Filed: 08/04/20 15:58> <JHONATAN ZARAGOZA - Last Filed: 08/04/20 16:34> - General Chief Complaint: High Blood Pressure Stated Complaint: BLOOD PRESSURE PROBLEMS/LEG PAIN Time Seen by Provider: 08/04/20 09:54 Primary Care Provider: MALLORY BARRIENTOS MD [Primary Care Provider] - Follow up as needed - HPI Notes: Patient has known primary hypertension on a 3 drug regimen as documented in the health record. He comes in today because his pressures have been steadily rising over the last few days. He has a bit of a headache and feels a little sluggish. He has no focal neurologic signs or symptoms. He denies any back or abdominal pain. He has no nausea or vomiting. He denies any edema, dyspnea, or chest pain. He states he has been fully compliant with his medication regimen. He denies any other acute illnesses or symptoms. He is otherwise in his usual state of health. (IVETH MOROCHO) - Related Data Allergies/Adverse Reactions: tramadol [Tramadol] Adverse Reaction (Verified 11/27/19 03:48) Nausea Past Medical History - General Information source: Patient - Social History Smoking Status: Unknown if Ever Smoked Family History: Reviewed & Not Pertinent, Hypertension Patient has homicidal ideation: No - Medical History Medical History: Other - Past Medical History Cardiac Medical History: Reports: Hx Hypertension Endocrine Medical History: Reports: Hx Diabetes Mellitus Type 2 Renal/ Medical History: Denies: Hx Peritoneal Dialysis Psychiatric Medical History: Reports: Hx Depression, Hx Post Traumatic Stress Disorder Past Surgical History: Reports: Hx Oral Surgery - wisdom, Hx Orthopedic Surgery - right shoulder - Immunizations Hx Diphtheria, Pertussis, Tetanus Vaccination: Yes <IVETH MOROCHO - Last Filed: 08/04/20 15:58> - Medical History Notes: Past medical history as documented in the electronic health record is reviewed. (IVETH MOROCHO) Review of Systems <IVETH MOROCHO - Last Filed: 08/04/20 15:58> - Review of Systems Notes: All other systems are reviewed and are negative or noncontributory except as noted in the present illness. (IVETH MOROCHO) Physical Exam <IVETH MOROCHO - Last Filed: 08/04/20 15:58> - Vital signs Vitals: Temp Pulse Resp BP Pulse Ox 98.1 F 73 16 214/136 H 98 08/04/20 08:20 08/04/20 08:20 08/04/20 08:20 08/04/20 08:20 08/04/20 08:20 - Notes Notes: General: Well-developed well-nourished pleasant male no acute distress. Vital signs and nursing documentation are reviewed. HEENT: Normocephalic atraumatic. EOMI. PERRLA. ENT otherwise grossly normal. Neck: Supple nontender. No adenopathy. Lungs: Clear to auscultation all layne. Heart: Regular rate and rhythm without murmur. Abdomen: Soft nontender no masses organomegaly. Specifically no pulsatile masses or bruits. Extremities: Without clubbing cyanosis edema or deformity. Skin: Warm moist good turgor no rashes. Neurologic: Alert and oriented x3. Cranial nerves II through XII intact bilaterally. Strength and sensation are within normal limits. Gait and station were not formally tested. (IVETH MOROCHO) Course - Laboratory Results Result Diagrams: 08/04/20 10:00 08/04/20 10:10 Critical Laboratory Results Reviewed: No Critical Results - Radiology Results Critical Radiology Results Reviewed: No Critical Results <IVETH MOROCHO - Last Filed: 08/04/20 15:58> - Laboratory Results Result Diagrams: 08/04/20 10:00 08/04/20 10:10 <JHONATAN ZARAGOZA JR - Last Filed: 08/04/20 16:34> - Re-evaluation Re-evalutation: 08/04/20 14:22 Patient was placed on a monitor. His blood pressure remained markedly elevated. I initially tried a limited intervention with a single dose of IV metoprolol and some p.o. Apresoline. This had no effect. I then gave him a second dose of IV metoprolol, a p.o. dose of metoprolol, and a dose of clonidine. This had no effect. I discussed the case informally with our hospitalist service and we came up with the plan of another dose of Apresoline, a dose of Imdur, and some IV furosemide. 08/04/20 15:05 Repeat blood pressure at 1500 was still 184/126. The patient asked for 30 more minutes to see if the medication would help before we make any sort of a decision regarding disposition. 08/04/20 15:58 At 3:30 PM the patient's blood pressure remained elevated at 180/116. We mutually agreed that we would get an internal medicine consult. I contacted Dr. Mireles from the hospitalist team and she said she would be down shortly to see the patient. At 4 PM at the end of my shift I gave report to Dr. Zaragoza. Final disposition and diagnosis will be per his prerogative in consult with Dr. Mireles. (IVETH MOROCHO) - Vital Signs Vital signs: Temp Pulse Resp BP Pulse Ox 98.1 F 73 25 H 168/107 H 98 08/04/20 08:20 08/04/20 08:20 08/04/20 16:02 08/04/20 16:02 08/04/20 16:02 - Laboratory Results Laboratory Results Interpreted: 08/04/20 10:10 Glucose 113 H Critical Care Note <JHONATAN ZARAGOZA JR - Last Filed: 08/04/20 16:34> - Critical Care Note Comments: Patient works at [employer] and is wearing a T-shirt with this logo on left c hest. Patient advised he needs a work note in order to get off work. Work note was provided for this patient. (JHONATAN ZARAGOZA JR) Discharge <IVETH MOROCHO - Last Filed: 08/04/20 15:58> <JHONATAN ZARAGOZA JR - Last Filed: 08/04/20 16:34> - Discharge Clinical Impression: Hypertensive urgency Hypertension Qualifiers: Hypertension type: unspecified Qualified Code(s): I10 - Essential (primary) hypertension Condition: Stable Disposition: HOME, SELF-CARE Instructions: High Blood Pressure ([facility]), High Blood Pressure, Requiring Treatm ent ([facility]) Additional Instructions: [facility] Off work until next Sunday. Encourage fluids. Also take a monitor and reading of your blood pressure twice a day on your new medicines. Try to avoid salt and use LITE salt instead and take Slow-Mag a magnesium supplement on a daily basis. Return to ER if your symptoms persist or worsen. Avoid lifting bending or twisting until seen by your personal doctor. Prescriptions: Clonidine HCl [Catapres 0.2 mg Tablet] 0.2 mg PO Q12 #60 tab Forms: Return to Work Referrals: MALLORY BARRIENTOS MD [Primary Care Provider] - Follow up as needed
[2020-08-04 16:12] VITALS: BP 168/107
--- NOTE | 2020-08-04 16:50 | PDOC CONSULTATION ---
Consultation Consult Date: 08/04/20 Attending physician:: IVETH MOROCHO Provider Consulted: SEFERINO PINO Consult reason:: HTN Urgency History of Present Illness Admission Date/PCP: MALLORY BARRIENTOS MD Patient complains of: elevated BP History of Present Illness: ZACHARY ACEVEDO is a 40 year old male with PMH of HTN, HLD, PTSD who presented to the ED because of elevated BP. He tells me that he was previously taking multiple BP medications to control his HTN, but that he stopped these medications sometime ago to "give his kidneys a break." About a week ago, he returned to the [place] to see a new PCP, and his BP was noted at that time to be "triples over triples" so he was started on his prior regimen of: Norvasc 5 mg daily, lisinopril 40 mg daily, HCTZ 25 mg daily and metoprolol tartrate 25 mg BID. He started taking these medications for the first time yesterday. His BP remained elevated today, so he presented to the ED. He denies vision changes, numbness/weakness, chest pain/pressure, SOB, LE edema, pre-syncope or syncope. In the ED, initial BP was 214/136 and has now decreased to 168/107 after several IV/PO medications. Labs are unremarkable and EKG shows no ischemic changes. Hospitalist service was consulted for discharge medication recommendations. Past Medical History Cardiac Medical History: Reports: Hyperlipidema, Hypertension Pulmonary Medical History: Reports: None EENT Medical History: Reports: None Neurological Medical History: Reports: None Endocrine Medical History: Reports: Diabetes Mellitus Type 2 Renal/ Medical History: Reports: None GI Medical History: Reports: None Psychiatric Medical History: Reports: Depression, Post Traumatic Stress Disorder Hematology: Reports: None Infectious Medical History: Reports: None Past Surgical History Past Surgical History: Reports: Orthopedic Surgery - right shoulder Social History Information Source: Patient Smoking Status: Unknown if Ever Smoked Electronic Cigarette use?: No Frequency of Alcohol Use: None Hx Recreational Drug Use: No Drugs: None Hx Prescription Drug Abuse: No - Advance Directive Resuscitation Status: Full Code Family History Family History: Reviewed & Not Pertinent, Hypertension Parental Family History Reviewed: Yes Children Family History Reviewed: Yes Sibling(s) Family History Reviewed.: Yes Medication/Allergy Home Medications: Fluoxetine HCl [Prozac 20 mg Capsule] 20 mg PO DAILY 03/04/18 Acetaminophen [Tylenol 325 mg Tablet] 975 mg PO Q6HP PRN tablet 03/06/18 Amlodipine Besylate/Benazepril [Amlodipine-Benazepril 10-40 mg] 1 cap PO DAILY #30 capsule 03/06/18 Hydrochlorothiazide [Hydrodiuril 25 mg Tablet] 25 mg PO DAILY #30 tablet Metoprolol Tartrate [Lopressor 25 mg Tablet] 25 mg PO Q12 #60 tablet 03/06/18 Dicyclomine HCl [Bentyl 10 mg Capsule] 1 cap PO TID #30 cap 05/06/19 Ranitidine HCl [Zantac] 150 mg PO BID #14 tablet 05/06/19 Sucralfate [Carafate 1 gm Tablet] 1 gm PO ACHS #30 tablet 05/06/19 Albuterol Sulfate [Proair HFA Inhalation Aerosol 8.5 gm MDI] 2 puff IH Q4H PRN #1 mdi 06/10/19 Benzonatate [Tessalon Perle 100 mg Capsule] 100 mg PO Q8HP PRN #40 cap 06/10/19 Albuterol Sulfate [Proair HFA Inhalation Aerosol 8.5 gm MDI] 2 puff IH Q4H PRN #1 mdi 11/27/19 Promethazine HCl/Codeine [Prometh-Codein 6.25-10 mg/5 ml] 5 ml PO Q6HP PRN #80 ml 11/27/19 Clonidine HCl [Catapres 0.2 mg Tablet] 0.2 mg PO Q12 #60 tab 08/04/20 Allergies/Adverse Reactions: tramadol [Tramadol] Adverse Reaction (Verified 11/27/19 03:48) Nausea Review of Systems Constitutional: PRESENT: fatigue Eyes: ABSENT: visual disturbances Cardiovascular: ABSENT: chest pain, dyspnea on exertion, edema, orthropnea, palpitations Respiratory: ABSENT: dyspnea Gastrointestinal: ABSENT: abdominal pain Genitourinary: ABSENT: dysuria Musculoskeletal: ABSENT: back pain Neurological: ABSENT: dizziness, syncope, tingling, vertigo, weakness Psychiatric: PRESENT: depression. ABSENT: homidical ideation, suicidal ideation Physical Exam Vital Signs: Temp Pulse Resp BP Pulse Ox 98.1 F 73 25 H 168/107 H 98 08/04/20 08:20 08/04/20 08:20 08/04/20 16:02 08/04/20 16:02 08/04/20 16:02 Intake & Output 08/03/20 08/04/20 08/05/20 06:59 06:59 06:59 Weight 132.449 kg General appearance: PRESENT: no acute distress, cooperative Eye exam: PRESENT: PERRLA. ABSENT: scleral icterus Mouth exam: PRESENT: moist Throat exam: ABSENT: post pharyngeal erythema Neck exam: ABSENT: JVD Respiratory exam: PRESENT: clear to auscultation rafy. ABSENT: crackles Cardiovascular exam: PRESENT: RRR GI/Abdominal exam: PRESENT: normal bowel sounds, soft. ABSENT: tenderness Extremities exam: ABSENT: pedal edema Neurological exam: PRESENT: alert, awake, oriented to person, oriented to place, oriented to time, oriented to situation Psychiatric exam: PRESENT: appropriate affect Skin exam: ABSENT: jaundice, petechiae Results Laboratory Results: 08/04/20 10:00 08/04/20 10:10 08/04/20 08/04/20 10:00 10:10 WBC 7.5 RBC 5.44 Hgb 15.3 Hct 44.3 MCV 82 MCH 28.1 MCHC 34.5 RDW 13.9 Plt Count 236 Sodium 139.1 Potassium 3.9 Chloride 100 Carbon Dioxide 29 Anion Gap 10 BUN 18 Creatinine 1.19 Est GFR ( Amer) > 60 Glucose 113 H Calcium 9.7 Assessment and Plan - Diagnosis (1) Hypertensive urgency Is this a current diagnosis for this admission?: Yes (2) Essential hypertension Is this a current diagnosis for this admission?: Yes - Plan Summary Summary: ZACHARY ACEVEDO is a 40 year old male with PMH of obesity (BMI 38), HTN, HLD, PTSD who presented to the ED because of elevated BP. He tells me that he was previously taking multiple BP medications to control his HTN, but that he stopped these medications sometime ago to "give his kidneys a break." [facility] a [facility], and his BP was noted at that time to be "triples over triples" so he was started on his prior regimen of: Norvasc 5 mg daily, lisinopril 40 mg daily, HCTZ 25 mg daily and metoprolol tartrate 25 mg BID. He started taking these medications for the first time yesterday. His BP remained elevated today, so he presented to the ED. He denies vision changes, numbness/weakness, chest pain/pressure, SOB, LE edema, pre-syncope or syncope. In the ED, initial BP was 214/136 and has now decreased to 168/107 after several IV/PO medications. Labs are unremarkable and EKG shows no ischemic changes. Hospitalist service was consulted for discharge medication recommendations. At this time, his BP has decreased by about 20% from initial check. He has no signs/symptoms of end-organ damage to suggest a hypertensive emergency. He likely has chronically elevated BP and his home BP medications, which he just started yesterday, have not yet reached steady state in his system. Discharge medication recommendations: - continue HCTZ 25 mg daily, lisinopril 40 mg daily and metoprolol 25 mg BID - increase home amlodipine dose from 5 to 10 mg daily - start clonidine 0.2 mg PO BID (this will help with both anxiety as well as HTN) I agree with discharge home from the ED. I advised Mr. Acevedo to continue to monitor his BP at home and to keep a BP log, which he should take with him to h is next PCP appointment. [facility]. - Time Time Spent with patient: 35 or more minutes Anticipated Discharge Disposition: Home, Self Care Anticipated Discharge Timeframe: within 24 hours
== END 2020-08-04 16:57 | disposition home or self-care (01) ==
LOC: ER 08:16
DX: I16.0 Hypertensive urgency (principal); I10 Essential (primary) hypertension; E11.9 Type 2 diabetes mellitus without complications; R51.9 Headache, unspecified; R53.83 Other fatigue; F32.9 Major depressive disorder, single episode, unspecified; F43.10 Post-traumatic stress disorder, unspecified; Z79.899 Other long term (current) drug therapy
CPT/HCPCS: 93005; 96376; 99284; 96374; 96375; 36415; 85027; 80048; 93010; J1940; J3490